=== PATIENT | female | born 1985 | race Caucasian/White ===

== ENCOUNTER → 2016-09-07 | Outpatient (CLI) | payer BC, OTHER ==
[~2016-09-07] MED LIST: INSU1INJ23; LABE100T23 PO; PRENTAB26 PO
== END | disposition home or self-care (01) ==
LOC: C.LABSPEC 11:53
PROVIDERS: ATTEND Obstetrics & Gynecology
DX: O24.414 Gestational diabetes mellitus in pregnancy, insulin controlled (principal)

== ENCOUNTER 2016-09-14 12:27 | Outpatient (CLI) | payer BC, OTHER | END 2016-09-14 13:50 | disposition home health service (06) | LOC: C.OPB 12:27 → C.LD 12:28 → C.OPB 13:50 | PROVIDERS: ATTEND Obstetrics & Gynecology | DX: O24.414 Gestational diabetes mellitus in pregnancy, insulin controlled (principal); Z3A.37 37 weeks gestation of pregnancy ==

== ENCOUNTER 2016-09-15 12:26 | Inpatient (IN) | payer BC, OTHER ==
[~2016-09-15] VITALS: Ht 154.9 cm; Wt 125.0 kg
[2016-09-15] MEDS ORDERED: LACTATED RINGER'S 1000ML 1,000 ML IV PRN (12:45)
[2016-09-15] MEDS ORDERED: SODIUM CHLORIDE 0.9% 1000ML 1,000 ML IV SCH (12:51)
[2016-09-15] MEDS ORDERED: DEXTROSE 50% 50 ML SYR IV PRN (13:00)
[2016-09-15 13:22] LABS: HEMATOCRIT 34.7 % (37-47); MEAN CELL VOLUME 85.7 fL (80-100); MEAN CORPUSCULAR HEMOGLOBIN 29.6 pg (25-34); MEAN CORPUSCULAR HGB CONC 34.6 g/dl (32-36); MEAN PLATELET VOLUME 10.5 fL (7.4-10.4); PLATELET COUNT 267 K/uL (130-400); RED BLOOD COUNT 4.05 M/uL (4.2-5.4); WHITE BLOOD COUNT 17.74 K/uL (4.8-10.8)
[2016-09-15] MEDS ORDERED: PENICILLIN G POTASSIUM IV 6 MU in DEXTROSE 5% 250ML 250 ML IV ONE (13:45)
[2016-09-15] MEDS ORDERED: SODIUM CHLORIDE 0.9% IV PRN (14:00)
[2016-09-15] MEDS ORDERED: INSULIN REGULAR IV PRN (14:00)
[2016-09-15] MEDS ORDERED: INSULIN REGULAR 250 UNITS in SODIUM CHLORIDE 0.9% 250ML 250 ML IV PRN (14:00)
[2016-09-15] MEDS: LACTATED RINGER'S 1000ML 1,000 ML IV SCH ×2 (14:15→20:15)
[2016-09-15] MEDS: DEXTROSE 5% 1000ML 1,000 ML IV SCH (14:33)
[2016-09-15 15:55] VITALS: Ht 154.9 cm; Wt 125.0 kg
[2016-09-15] MEDS ORDERED: LACTATED RINGER'S 1000ML 500 ML IV PRN ×2 (16:48→20:50)
[2016-09-15] MEDS ORDERED: OXYTOCIN 30 UNITS/500ML NSS IV PRN (17:00)
[2016-09-15] MEDS: PENICILLIN G POTASSIUM IV 3 MU in DEXTROSE 5% 100ML 100 ML IV PRN ×2 (18:41→22:31)
[2016-09-15] MEDS ORDERED: EpHEDrine SULFATE INJ 50 MG/ML AMP ONE (19:57)
[2016-09-15] MEDS ORDERED: FENTANYL 2MCG/ML ROPIV 1.25MG/ML 100ML BAG EPI ONE (19:57)
[2016-09-15] MEDS ORDERED: BUPIVACAINE 0.25% 30 ML VIAL ONE (19:57)
[2016-09-15] MEDS ORDERED: FENTANYL CITRATE INJ 50 MCG/1 ML 2 ML VIAL ONE (19:59)
[2016-09-15] MEDS ORDERED: LABETALOL HCL 100 MG TAB PO ONE (20:00)
[2016-09-15] MEDS ORDERED: NALOXONE HCL INJ 1 MG in SODIUM CHLORIDE 0.9% 1000ML 1,000 ML IV PRN ×4 (20:50)
[2016-09-15] MEDS ORDERED: EpHEDrine SULFATE INJ 50 MG/ML AMP IV PRN (21:00)
[2016-09-15] MEDS ORDERED: DiphenhydrAMINE HCL 50 MG/ML VIAL IV PRN (21:00)
[2016-09-15] MEDS ORDERED: ONDANSETRON INJ 2 MG/ML 2 ML VIAL IV PRN (21:00)
[2016-09-15] MEDS ORDERED: NALBUPHINE HCL INJ 10 MG/ML AMP IV PRN (21:00)
[2016-09-15] MEDS ORDERED: NALOXONE HCL INJ 0.4 MG/1 ML VIAL/CARP IV PRN (21:00)
[2016-09-16] MEDS: DEXTROSE 5% 1000ML 1,000 ML IV SCH (00:10)
[2016-09-16] MEDS ORDERED: NURSING VERBAL MED ORDER ONE ×2 (00:15→18:30)
[2016-09-16] MEDS ORDERED: CALCIUM CARBONATE 500 MG CHEWABLE ONE (00:18)
[2016-09-16] MEDS ORDERED: CALCIUM CARBONATE 500 MG CHEWABLE PO PRN (00:30)
[2016-09-16] MEDS: PENICILLIN G POTASSIUM IV 3 MU in DEXTROSE 5% 100ML 100 ML IV PRN ×3 (02:04→10:07)
[2016-09-16] MEDS: FENTANYL 2MCG/ML ROPIV 1.25MG/ML 100ML BAG EPI PRN ×2 (05:27→07:09)
--- NOTE | 2016-09-16 10:58 | Anesthesia Procedure Note ---
Anesthesia Epidural Removal Nt Date & Time Sep 16, 2016 at 10:58 Vital Signs Pain Intensity: 0.0 Notes Mental Status: alert / awake / arousable, participated in evaluation Nausea / Vomiting: adequately controlled Pain: adequately controlled Airway Patency, RR, SpO2: stable & adequate BP & HR: stable & adequate Hydration State: stable & adequate Neuraxial Anesthesia: was administered Anesthetic Complications: no major complications apparent, pt satisfied with anesthetic care Epidural: removed without complications, with tip intact
[2016-09-16] MEDS ORDERED: LANOLIN OINT EXT PRN ×2 (11:45)
[2016-09-16] MEDS ORDERED: OXYTOCIN 30 UNITS/500ML NSS IV PRN (11:45)
[2016-09-16] MEDS ORDERED: SUPERCREAM 0.870 % 15GM JAR EXT PRN (11:45)
[2016-09-16] MEDS ORDERED: BENZOCAINE 20% AER SPR 82.5 GM CAN EXT PRN (11:45)
[2016-09-16] MEDS ORDERED: ACETAMINOPHEN/CODEINE 300/30MG TAB PO PRN ×2 (11:45)
[2016-09-16] MEDS ORDERED: ACETAMINOPHEN 325 MG TAB PO PRN (11:45)
--- NOTE | 2016-09-16 12:31 | DELIVERY SUMMARY ---
DATE OF OPERATION: 09/16/2016 DATE OF DELIVERY: 09/16/2016. The patient is a 31-year-old 1, P0 white female EDC of 10/02/2016 who presented with rupture of membranes on 09/15/2016. She received epidural analgesia and Pitocin augmentation of labor. She is a gestational diabetic on insulin however was not taking her insulin as directed. She also hachronic hypertension and takes labetalol pre- & she has continued during the female . There was moderate shoulder dystocia present which was relieved with suprapubic pressure and hyperflexion of the hips. The anterior shoulder then delivered. The posterior shoulder then followed after and the rest of the delivered without difficulty and was placed on the mother's abdomen for further attention. Cord was clamped and cut. The was pink but was not crying vigorously and was brought to the baby bed for further resuscitation. Stimulation resulted in vigorous crying and moving of all four limbs. The placenta was expressed intact with a 3-vessel cord. First degree peritoneal laceration was repaired with 3-0 chromic in the usual fashion. There was a 400 mL blood loss. Bleeding was controlled with dilute Pitocin. Mother and doing well after delivery. I attest to the content of the Intraoperative Record and any orders documented therein. Any exceptions are noted below. MTDD
[2016-09-16 14:00] VITALS: BP 138/83; PULSE 105; TEMP 36.7; O2SAT 95
[2016-09-16 15:30] VITALS: BP 247/137; PULSE 106; TEMP 36.7
[2016-09-16 19:00] VITALS: BP 135/79; PULSE 100; TEMP 36.7
[2016-09-16] MEDS ORDERED: LABETALOL HCL 100 MG TAB PO SCH (20:00)
[2016-09-16] MEDS: IBUPROFEN 600 MG TAB PO PRN (20:41)
[2016-09-16] MEDS: DOCUSATE SODIUM 100 MG CAP PO SCH (20:41)
[2016-09-16 23:30] VITALS: BP 135/81; PULSE 90; TEMP 36.5; O2SAT 98
[2016-09-17 04:35] VITALS: BP 109/67; PULSE 85; TEMP 36.5
[2016-09-17] MEDS ORDERED: LABETALOL HCL 100 MG TAB PO SCH ×2 (06:00→18:00)
[2016-09-17 06:08] VITALS: BP 118/72; PULSE 92
[2016-09-17 07:30] VITALS: BP 138/76; PULSE 100; TEMP 36.7
[2016-09-17] MEDS: PRENATAL VITAMIN TAB PO SCH (08:21)
[2016-09-17] MEDS: DOCUSATE SODIUM 100 MG CAP PO SCH ×2 (08:21→20:20)
--- NOTE | 2016-09-17 09:50 | Progress Note ---
Subjective Sep 17, 2016. Subjective conversation w/ patient, physical exam Ambulation: ambulating normally Voiding: no voiding problems Passing Gas: Yes Diet Tolerance: Regular Diet Lochia: Moderate Feeding Type: Bottle Feeding Comment: BP elevated after arrival in room but the regular cuff was used to get the blood pressure. Review of Systems Constitutional: No chills, No fatigue, No fever, No problem reported, No sweats , No weakness, No weight loss Breast: No breast lump, No breast pain, No change in shape, No nipple discharge , No problem reported, No see HPI Abdomen: No GI bleeding, No constipation, No diarrhea, No nausea, No pain, No problem reported, No vomiting Female : No abnormal vaginal bleeding, No dysuria, No hematuria, No incontinence, No problem reported, No see HPI, No urinary frequency, No vaginal discharge Objective Vital Signs Date Time Temp Pulse Resp B/P Pulse Ox O2 Delivery O2 Flow Rate FiO2 09/17/16 07:30 Room Air 09/17/16 07:30 36.7 100 20 138/76 09/17/16 06:08 92 18 118/72 Room Air 09/17/16 04:35 36.5 85 18 109/67 Room Air 09/16/16 23:30 36.5 90 20 135/81 98 Room Air 09/16/16 23:30 98 Room Air 09/16/16 19:00 36.7 100 20 135/79 Room Air 09/16/16 15:30 36.7 106 20 247/137 Room Air 09/16/16 15:30 Room Air 09/16/16 14:00 Room Air 09/16/16 14:00 36.7 105 16 138/83 95 Room Air Physical Exam General Appearance: WELL-APPEARING, NO APPARENT DISTRESS Abdomen: non tender, soft Fundus: Firm, Non-Tender, Relation to Umbilicus (1 below U difficult to feel.) Extremities: no calf tenderness Laboratory Results Last 24 Hours Test 09/16/16 10:04 09/17/16 05:17 Bedside Glucose 78 mg/dl Hemoglobin 10.2 g/dL Hematocrit 30.0 % Assessment and Plan Post- Day#: 1 Continue Routine Care: stable course continue labetalol 100mg in the am & 50mg in the pm GBS+ continue current care plan.
[2016-09-17] MEDS: IBUPROFEN 600 MG TAB PO PRN ×2 (14:28→20:21)
[2016-09-17 15:25] VITALS: BP 146/90; PULSE 95; TEMP 36.8; O2SAT 96; O2SAT 98
[2016-09-17 18:08] VITALS: BP 131/83; PULSE 89
[2016-09-17] MEDS ORDERED: BISACODYL 5 MG TABEC PO SCH (20:00)
[2016-09-17 23:20] VITALS: BP 141/74; PULSE 84; TEMP 36.6; O2SAT 97
[2016-09-18] MEDS: IBUPROFEN 600 MG TAB PO PRN ×2 (01:57→06:20)
--- NOTE | 2016-09-18 06:57 | Progress Note ---
Subjective Sep 18, 2016. Subjective conversation w/ patient, physical exam Ambulation: ambulating normally Voiding: no voiding problems Passing Gas: Yes Diet Tolerance: Regular Diet Lochia: Small Feeding Type: Bottle Feeding Pain: Minor pain associated with vaginal laceration stitches Review of Systems Constitutional: No chills, No fever Respiratory: No cough, No shortness of breath Cardiac: No chest pain Breast: No breast pain Abdomen: No nausea, No pain, No vomiting Female : No dysuria Objective Vital Signs Date Time Temp Pulse Resp B/P Pulse Ox O2 Delivery O2 Flow Rate FiO2 09/17/16 23:20 36.6 84 20 141/74 97 Room Air 09/17/16 23:20 97 Room Air 09/17/16 18:08 89 131/83 09/17/16 15:25 98 Room Air 09/17/16 15:25 36.8 95 18 146/90 96 Room Air 09/17/16 07:30 Room Air 09/17/16 07:30 36.7 100 20 138/76 Physical Exam General Appearance: WELL-APPEARING, WD/WN, NO APPARENT DISTRESS Respiratory/Chest: lungs clear, normal breath sounds Cardiovascular: regular rate, rhythm, no gallop, no murmur Abdomen: non tender, soft Fundus: Relation to Umbilicus (At umbilicus) Extremities: no calf tenderness Medications Current Inpatient Medications Medications (Trade) Dose Ordered Sig/Kathi Route Start Time Stop Time Status Last Admin Dose Admin Oxytocin (Pitocin IV) 30 units UD PRN IV 09/16/16 11:45 10/16/16 11:44 Benzocaine (Dermoplast Aero Spr) 1 appln PRN PRN EXT 09/16/16 11:45 10/16/16 11:44 09/16/16 14:00 1 APPLN Cocaine HCl (Supercream 0.870% Cr) BID PRN EXT 09/16/16 11:45 09/30/16 11:44 Lanolin (Lanolin Oint) PRN PRN EXT 09/16/16 11:45 10/16/16 11:44 Prenat Multivit/ Joint Creaser/Iron/Folic Ac ( Vitamin Tab) 1 tab DAILY PO 09/17/16 08:00 10/17/16 07:59 09/17/16 08:21 1 TAB Ibuprofen (Motrin Tab) 600 mg Q4H PRN PO 09/16/16 11:45 10/16/16 11:44 09/18/16 06:20 600 MG Acetaminophen (Tylenol Tab) 650 mg Q6H PRN PO 09/16/16 11:45 10/16/16 11:44 Acetaminophen/ Codeine Phosphate (Tylenol w/ Codeine #3 Tab) 1 tab Q4H PRN PO 09/16/16 11:45 10/16/16 11:44 09/16/16 23:52 1 TAB Acetaminophen/ Codeine Phosphate (Tylenol w/ Codeine #3 Tab) 2 tab Q4H PRN PO 09/16/16 11:45 10/16/16 11:44 Docusate Sodium (coLACE CAP) 100 mg BID PO 09/16/16 20:00 10/16/16 19:59 09/17/16 20:20 100 MG Labetalol HCl (Normodyne Tab) 100 mg QAM PO 09/18/16 08:00 10/18/16 07:59 Assessment and Plan Post- Day#: 2 Continue Routine Care: Resident Physician Supervision Note: I interviewed and examined the patient. Discussed with Dr. Barros and agree with findings and plan as documented in the note. Any exceptions or clarifications are listed here: [None] Documented By: Whit Zamarripa - Vital Signs reviewed and WNL (temp max 36.8) - Blood Type: O+, GBS+, Rubella Immune - Patient doing well clinically - No pain reported this morning, some discomfort 2/2 stitches - Tolerating PO Diet Well - BP 141/74 today, receiving Labetalol 100mg in am and 500mg in pm - Discharge today
--- NOTE | 2016-09-18 06:58 | Discharge Instructions ---
Discharge Instructions Admission Reason for Admission: Ruptured Membrances Discharge Discharge Diagnosis / Problem: Vaginal delivery Discharge Goals Goal(s): Routine recovery after delivery Medications Continue Dispensed Medications: supercream, dermaplast, tucks, lansinoh Activity Recommendations Activity Limitations: per Instructions/Follow-up section . Instructions / Follow-Up Instructions / Follow-Up ACTIVITY RECOMMENDATIONS: * Gradual return to full activity over the next 2-3 weeks. * No lifting - nothing heavier than baby over the next 2-3 weeks. * Do not engage in vigorous exercise, sexual activity or sports until cleared by your physician. * Do not drive or operate any motorized equipment until cleared by your physician. * You may shower/bathe daily. MEDICATIONS: For discomfort or pain, you may use Acetaminophen (Tylenol), Ibuprofen (Advil), or Naproxen (Aleve) following the package directions. For constipation you may use Colace following the package directions. BREAST CARE: If you are not breast feeding: * Wear a supportive bra 24 hours a day for one to two weeks. * Avoid stimulating your breasts and nipples as much as possible during the first few weeks after delivery. * When taking a shower, have the warm water hit your back, not breasts. * When your breasts feel full, apply ice packs. Usually three to four times a day helps ease the discomfort. * Take a mild pain medication (Tylenol / Motrin) when you are uncomfortable. If breast feeding: * Use breast milk to lubricate nipples. Lansinoh cream may be used for sore nipples. You do not need to remove cream prior to breast feeding. If using a different brand of cream, check the label for directions regarding removal of cream prior to nursing. * Wear a supportive bra. * If having problems with breasts or breast feeding, call a rehab consultant or your health care provider. EPISIOTOMY CARE: After delivery, if you have an episiotomy (stitches), the following steps will ease discomfort and aid healing. * For the first 24 hours after delivery, place ice packs next to your episiotomy to help reduce swelling. * After the first 24 hour-period, sitz baths, either portable or in the tub, are suggested. A shower with a shower arm sprayed over the episiotomy may be comforting. * Nida care should be done after each voiding and bowel movement. Squirt warm water from a plastic bottle over the perineum (region of the body between the anus and urinary opening) and pat dry. * Use Dermoplast to ease discomfort. Shake container. [place] directly over the episiotomy. Place a Tucks on a clean sanitary pad next to your episiotomy. SPECIAL CARE INSTRUCTIONS: When you are discharged from the hospital, it is important for you to follow the instructions listed below: * During the first week at home, you should be able to care for yourself and your baby. In addition, the usual light household activities are encouraged. * Limit your activities to the way you feel. Do not try to clean the house or move furniture. Be sensible. * If you actively engage in sports and have done so up until the time of your delivery, you may resume these activities as soon as you feel able. This may take up to one month or even longer. Use good judgment. * Continue to take your vitamins for at least six weeks after the of your baby. * Your diet need not be limited unless you were on a special diet before your delivery. Breast-feeding mothers need around 2500 calories per day and at least 64-80 ounces of fluid per day (8 to 10 glasses). * You should eat foods from the four major food groups. Crash diets or fad diets are to be avoided. Eating lean meats, fresh fruits and vegetables, low-fat dairy products, high fiber foods and a regular exercise program, will help you get back to your pre- weight without putting your health at risk. * Constipation is sometimes a problem after delivery. Take a mild laxative as needed. If breast feeding, Milk of Magnesia is acceptable to use. You may use a suppository or Fleets enema if no episiotomy. * A daily shower or tub bath is suggested. Be sure to thoroughly and gently dry the perineum. * A bloody vaginal discharge will usually continue until around four weeks post . A small amount of bleeding may continue for as long as six weeks. Vaginal discharge changes from the bright red bleeding after delivery to pink then brownish and finally yellowish-pink before becoming white and disappearing. * Bleeding may increase with activity. Your first period may come in 4-8 weeks. If you are breast feeding, your period may be delayed even longer. * Kirk (sex) can begin whenever both you and your partner feel comfortable and do not have any form of genital infection. It is recommended that you wait at least six weeks for internal and external healing to occur. If you have questions, please talk to your health care practitioner. A condom should be used to prevent infection and . * Foreplay, gentle intercourse and lubrication is very important the first several times to prevent pain. A water-based lubricant such as K-Y jelly or Astroglide may be used. * If you have RH negative blood and your baby is RH positive, you will receive RHOGAM by injection prior to discharge. The nurse will give you a card to keep with you that has the date and place that you received RHOGAM after delivery. * During your care, you had a Rubella screen done to check for the presence of rubella antibodies in your blood. If your test was negative, you will receive a Rubella vaccine prior to discharge. This vaccine may cause a fever, soreness at the injection site and flu-like symptoms. If these symptoms persist, notify your health care practitioner. is not advised for one month after a Rubella vaccine. * Verbalizes understanding of car seat law as reviewed with patient nursing. * Car Seat hand-out given and reviewed with patient by nursing. * Shaken baby information reviewed with patient by nursing. Call you doctor if: * Heavy bleeding (saturating several pads an hour) or passing clots the size of your fist. * A fever >101 degrees F (38.3 degrees C) on two occasions four hours apart and /or chills. * Unusual pain in the pelvic or vaginal areas. * "Baby Blues" lasting longer than two weeks. If you have any questions or concerns, call your health care practitioner at . FOLLOW UP VISIT: * Please call the office at to schedule a 6 week examination. It is important you keep this appointment. It is important for you to make arrangements for either yearly or twice yearly check-ups thereafter. Current Hospital Diet Patient's current hospital diet: Regular OB Diet Discharge Diet Recommended Diet: Regular Diet Pending Studies Studies pending at discharge: no Medical Emergencies . Who to Call and When: Medical Emergencies: If at any time you feel your situation is an emergency, please call 911 immediately. . Non-Emergent Contact Non-Emergency issues call your: Senior Procurement Specialist . . "Provider Documentation" section prepared by Alex Barros. VTE Core Measure Inpt VTE Proph given/why not?: Treatment not indicated
[2016-09-18] MEDS ORDERED: LABETALOL HCL 100 MG TAB PO SCH (08:00)
[2016-09-18] MEDS: PRENATAL VITAMIN TAB PO SCH (08:53)
[2016-09-18] MEDS: DOCUSATE SODIUM 100 MG CAP PO SCH (08:55)
[2016-09-18 09:30] VITALS: BP 139/80; PULSE 88; TEMP 36.4
[2016-09-18 11:00] VITALS: BP_DIAS 80; PULSE 88; TEMP 36.4
== END 2016-09-18 11:00 | disposition home or self-care (01) | DRG 774 ==
LOC: C.OPB 12:26 → C.LD 12:26 → C.OPB 12:45 → C.LD 12:50 → C.OBG 09-16 13:52
PROVIDERS: ADMIT Obstetrics & Gynecology; ATTEND Obstetrics & Gynecology
PROC: 0HQ9XZZ Repair Perineum Skin, External Approach (ICD-10-PCS; principal; 2016-09-16)
PROC: 10E0XZZ Delivery of Products of Conception, External Approach (ICD-10-PCS; principal; 2016-09-16)
DX: O66.0 Obstructed labor due to shoulder dystocia (principal); O70.0 First degree perineal laceration during delivery; O24.414 Gestational diabetes mellitus in pregnancy, insulin controlled; O10.013 Pre-existing essential hypertension complicating pregnancy, third trimester; O99.824 Streptococcus B carrier state complicating childbirth; J45.909 Unspecified asthma, uncomplicated; O99.513 Diseases of the respiratory system complicating pregnancy, third trimester; Z3A.37 37 weeks gestation of pregnancy; Z37.0 Single live birth

== ENCOUNTER → 2016-12-28 | Outpatient (CLI) | payer BC ==
[~2016-12-28] MED LIST changes: -INSU1INJ23
--- NOTE | 2016-12-28 15:07 | MAMMOGRAPHY REPORT ---
ULTRASOUND OF LEFT BREAST: 12/28/2016 CLINICAL HISTORY: The patient reports a palpable lump in her left breast for approximately 1.5 weeks . She gave 3 months ago and is not breast feeding. She denies any nipple discharge. COMPARISON: No prior exams were available for comparison. TECHNIQUE: Real-time targeted ultrasound of the left breast was performed. FINDINGS: Real-time, high resolution targeted ultrasound was performed of the area of the palpable lump pointe d out by the patient, in the left breast at 12:00, approximately 3 cm from the nipple with her arms down. Sonographically normal tissue is seen in this region, without evidence of a mass or other thania picious sonographic abnormality. IMPRESSION: ACR BI-RADS CATEGORY 1: NEGATIVE No suspicious sonographic abnormalities at the site of the palpable left breast lump pointed out by the patient. There is no sonographic evidence of malignancy. Recommend clinical follow-up. Mary Castro M.D. ah/:12/28/2016 11:43:22 Liner Reroll Tender: Jazz AVALOS(R)(Bren), [facility] letter sent: Normal 1/2 BI-RADS Code: ACR BI-RADS Category 1: Negative
== END | disposition home or self-care (01) ==
LOC: C.MAMM 11:21
PROVIDERS: ATTEND Physician Assistant Medical
DX: N63 Unspecified lump in breast (principal)

== ENCOUNTER → 2017-06-28 | Outpatient (CLI) | payer BC ==
[2017-06-28 18:02] LABS: PREG INTERNAL NEGATIVE QC NEG CLEAR BACKGROUND; PREG INTERNAL POSITIVE QC POS CONTROL LINE
[2017-06-28 18:15] LABS: ALT/SGPT 33 U/L (12-78); AST/SGOT 27 U/L (15-37); BLOOD UREA NITROGEN 16 mg/dl (7-18); BUN/CREATININE RATIO 19.9 (10-20); CALCIUM 9.4 mg/dl (8.5-10.1); CARBON DIOXIDE 28 mmol/L (21-32); CHLORIDE 103 mmol/L (98-107); GLUCOSE 95 mg/dl (70-99); POTASSIUM 3.7 mmol/L (3.5-5.1); SODIUM 139 mmol/L (136-145)
[2017-06-28 18:17] LABS: ALB/GLOB RATIO 0.8 (0.9-2); ALKALINE PHOSPHATASE 90 U/L (45-117)
== END | disposition home or self-care (01) ==
LOC: C.LABBFT 14:57
PROVIDERS: ATTEND Physician Assistant Medical
DX: I10 Essential (primary) hypertension (principal)

== ENCOUNTER → 2017-07-02 | Outpatient (CLI) | payer BC ==
[2017-07-05 18:35] LABS: ALBUMIN 3.7 G/DL (3.8-4.8); METANEPHRINE 79 mcg/24 h (36-190); NORMETANEPHRINE UR 269 mcg/24 h (35-482); TOTAL METANEPHRINE 348 mcg/24 h (115-695); TOTAL PROTEIN 7.1 G/DL (6.2-8.3)
== END | disposition home or self-care (01) ==
LOC: C.LABBFT 08:49
PROVIDERS: ATTEND Physician Assistant Medical
DX: I10 Essential (primary) hypertension (principal); R77.1 Abnormality of globulin

== ENCOUNTER → 2017-07-09 | Outpatient (CLI) | payer BC ==
[2017-07-11 14:39] LABS: ALBUMIN % 30.95 %; ALPHA-2-GLOBULIN % 22.28 %; BETA GLOBULIN % 22.77 %; CREATININE UR 147 MG/DL (20-320); GAMMA GLOBULIN % 19.64 %
== END | disposition home or self-care (01) ==
LOC: C.LABBFT 09:23
PROVIDERS: ATTEND Physician Assistant Medical
DX: R77.1 Abnormality of globulin (principal)

== ENCOUNTER 2017-08-28 14:27 | Emergency (ER) | payer BC ==
[~2017-08-28] VITALS: Ht 157.5 cm; Wt 118.9 kg
[2017-08-28 14:31] VITALS: TEMP 36.7; O2SAT 96; Ht 157.5 cm; Wt 118.9 kg
--- NOTE | 2017-08-28 15:36 | EMERGENCY ROOM VISIT NOTE ---
History Report prepared by Peter: Joes Maria Schaffer Under the Supervision of: Dr. Chato Wilkins M.D. First contact with patient: 15:28 Chief Complaint: FLU LIKE SX Stated Complaint: STOMACH FLU,DEHYDRATED,DIZZY History of Present Illness The patient is a 32 year old white female with a past medical history of hypertension who presents to the ED with a cc of worsening flu-like symptoms beginning a week ago. Positive diarrhea, leg cramping, weakness, dizziness, decreased urinary frequency. Negative cough, vomiting, recent antibiotic use, travels, or well-water use. She states that her diarrhea worsened 4 days ago, and has been "nonstop" since then. The patient notes that she has lost 9 pounds over the past 4 days. She says that she has no known recent sick contacts. Her last menstrual period was 2 weeks ago. She notes that her immunizations are up to date, but has not had her flu shot this season. Source of History: patient Onset: A week ago Position: other (global - flu-like symptoms) Timing: worsening Associated Symptoms: + diarrhea, + urinary symptoms (decreased frequency), + weakness, No cough, No vomiting Note: Associated symptoms: Leg cramping. Dizzy. Review of Systems See HPI for pertinent positives and negatives. A total of ten systems were reviewed and were otherwise negative. Past Medical & Surgical Medical Problems: (1) 35 weeks gestation of (2) Active labor (3) HTN (hypertension) (4) Leukocytosis Family History FH: bladder cancer FH: breast cancer FH: leukemia Social History Smoking Status: Never Smoker Drug Use: none Marital Status: in relationship Occupation Status: employed Current/Historical Medications Scheduled Control Pills ( Control Pills), 1 TAB PO DAILY Cephalexin (Keflex), 1 CAP PO BID Hydrochlorothiazide (Hydrochlorothiazide), 37.5 MG PO DAILY Ondasetron Odt (Zofran Odt), 4 MG SL Q6H Allergies Coded Allergies: Sulfa Drugs (Verified Allergy, Unknown, HIVES, 08/30/16) Physical Exam Vital Signs Date Time Temp Pulse Resp B/P (MAP) Pulse Ox O2 Delivery O2 Flow Rate FiO2 08/28/17 18:17 82 18 149/93 08/28/17 14:31 36.7 96 16 136/94 96 Room Air Physical Exam GENERAL: Awake, alert, well-appearing, NAD HENT: Normocephalic, atraumatic. EYES: Normal conjunctiva. Sclera non-icteric. NECK: Supple. No nuchal rigidity. FROM. RESPIRATORY: CTAB, no rhonchi, wheezing, crackles CARDIAC: RRR, no MRG ABDOMEN: Soft, NTND, BS+, negative obturator, negative psoas. MSK: No chest wall TTP, no LE edema. No CVA TTP. NEURO: GCS 15, CN 2-12 intact, moves all 4s on command SKIN: No rash or jaundice noted. Medical Decision & Procedures ER Provider Diagnostic Interpretation: X-ray: Per my interpretation, radiologist review. CHEST ONE VIEW PORTABLE CLINICAL HISTORY: 32 years-old Female presenting with ABDOMINAL PAIN/GI. TECHNIQUE: Portable upright AP view of the chest was obtained. COMPARISON: 12/09/2008 and 04/22/2012. FINDINGS: Cardiomediastinal silhouette normal. Lungs and pleural spaces clear. Osseous structures normal. Upper abdomen normal. IMPRESSION: 1. No acute cardiopulmonary disease. Electronically signed by: Joe Landers M.D. 08/28/2017 4:03 PM Dictated Date/Time: 08/28/2017 4:02 PM Laboratory Results 08/28/17 16:15 Red Blood Count 5.12, Mean Corpuscular Volume 81.8, Mean Corpuscular Hemoglobin 29.3, Mean Corpuscular Hemoglobin Concent 35.8, Mean Platelet Volume 10.3, Neutrophils (%) (Auto) 72.2, Lymphocytes (%) (Auto) 17.3, Monocytes (%) (Auto) 8.7, Eosinophils (%) (Auto) 1.4, Basophils (%) (Auto) 0.2, Neutrophils # (Auto) 9.66, Lymphocytes # (Auto) 2.31, Monocytes # (Auto) 1.17, Eosinophils # (Auto) 0.19, Basophils # (Auto) 0.03 08/28/17 16:15 Test 08/28/17 16:15 08/28/17 17:15 White Blood Count 13.39 K/uL (4.8-10.8) Red Blood Count 5.12 M/uL (4.2-5.4) Hemoglobin 15.0 g/dL (12.0-16.0) Hematocrit 41.9 % (37-47) Mean Corpuscular Volume 81.8 fL (80-100) Mean Corpuscular Hemoglobin 29.3 pg (25-34) Mean Corpuscular Hemoglobin Concent 35.8 g/dl (32-36) Platelet Count 297 K/uL (130-400) Mean Platelet Volume 10.3 fL (7.4-10.4) Neutrophils (%) (Auto) 72.2 % Lymphocytes (%) (Auto) 17.3 % Monocytes (%) (Auto) 8.7 % Eosinophils (%) (Auto) 1.4 % Basophils (%) (Auto) 0.2 % Neutrophils # (Auto) 9.66 K/uL (1.4-6.5) Lymphocytes # (Auto) 2.31 K/uL (1.2-3.4) Monocytes # (Auto) 1.17 K/uL (0.11-0.59) Eosinophils # (Auto) 0.19 K/uL (0-0.5) Basophils # (Auto) 0.03 K/uL (0-0.2) RDW Standard Deviation 38.6 fL (36.4-46.3) RDW Coefficient of Variation 12.8 % (11.5-14.5) Immature Granulocyte % (Auto) 0.2 % Immature Granulocyte # (Auto) 0.03 K/uL (0.00-0.02) Urine Color YELLOW Urine Appearance CLOUDY (CLEAR) Urine pH 7.0 (4.5-7.5) Urine Specific [place] 1.016 (1.000-1.030) Urine Protein TRACE (NEG) Urine Glucose (UA) NEG (NEG) Urine Ketones NEG (NEG) Urine Occult Blood NEG (NEG) Urine Nitrite NEG (NEG) Urine Bilirubin NEG (NEG) Urine Urobilinogen NEG (NEG) Urine Leukocyte Esterase MODERATE (NEG) Urine WBC (Auto) 10-30 /hpf (0-5) Urine RBC (Auto) >30 /hpf (0-4) Urine Hyaline Casts (Auto) 10-30 /lpf (0-5) Urine Epithelial Cells (Auto) >30 /lpf (0-5) Urine Bacteria (Auto) NEG (NEG) Urine Test NEG (NEG) Anion Gap 6.0 mmol/L (3-11) Est Creatinine Clear Calc Drug Dose 155.1 ml/min Estimated GFR () 138.1 Estimated GFR (Non- 119.1 BUN/Creatinine Ratio 8.5 (10-20) Calcium Level 8.5 mg/dl (8.5-10.1) Phosphorus Level 2.0 mg/dl (2.5-4.9) Magnesium Level 2.2 mg/dl (1.8-2.4) Total Bilirubin 0.4 mg/dl (0.2-1) Direct Bilirubin mg/dl (0-0.2) Aspartate Amino Transf (AST/SGOT) 47 U/L (15-37) Alanine Aminotransferase (ALT/SGPT) 47 U/L (12-78) Alkaline Phosphatase 85 U/L (45-117) Total Protein 7.6 gm/dl (6.4-8.2) Albumin 3.1 gm/dl (3.4-5.0) Lipase 67 U/L (73-393) Chemistry Specimen Hemolysis Influenza Type A Antigen Neg for Influ A (NEG) Influenza Type B Antigen Neg for Influ B (NEG) Laboratory results reviewed by me Medications Administered Medications (Trade) Dose Ordered Sig/Kathi Route Start Time Stop Time Status Last Admin Dose Admin Ondansetron HCl (Zofran Inj) 4 mg NOW STAT IV 08/28/17 15:38 08/28/17 15:39 DC 08/28/17 16:13 4 MG Cephalexin Monohydrate (Keflex Cap) 500 mg NOW ONCE PO 08/28/17 17:45 08/28/17 17:46 DC 08/28/17 18:15 500 MG Potassium Chloride (Klor-Con M10) 40 meq STK-MED ONCE .ROUTE 08/28/17 18:36 08/28/17 18:37 DC 08/28/17 18:39 40 MEQ ED Course 1530: The patient was evaluated in room A2. A complete history and physical exam was performed. 1830: I reevaluated the patient and she is resting comfortably. Discussed results and discharge instructions: she verbalized understanding and agreement. The patient is ready for discharge. Medical Decision The patient is a 32 year old white female with a past medical history of hypertension who presents to the ED with a cc of worsening flu-like symptoms beginning a week ago. Positive diarrhea, leg cramping, weakness, dizziness, decreased urinary frequency. Negative cough, vomiting, recent antibiotic use, travels, or well-water use. Differential diagnosis: Etiologies such as appendicitis, diverticulitis, PUD, biliary pathology, UTI, pancreatitis, obstruction, mesenteric ischemia, aortic pathology, infections, inflammatory bowel disease, renal colic, as well as others were entertained. Patient was seen and evaluated the bedside. Patient was complaining of some GI upset, nausea, with some loose stools. Patient did feel weak and dizzy. On exam the patient was fairly well-appearing and had normal cap refill. Patient did have blood work that was completed along with urinalysis and urine test. Patient had a questionable UTI which was treated given her symptoms. Patient did have hypokalemia and normal mag the patient was repleted with potassium. Patient was told she would take a multivitamin and/or eat potatoes and/or bananas. Influenza negative. Patient was able tolerate by mouth and her nausea had resolved medications. Patient was given prescriptions as well as recommendations for at-home treatment. Patient was deemed suitable for outpatient follow-up and treatment. Patient does not have a surgical abdomen that I thought required any more advanced imaging at this time. Patient was amenable to the plan of care. Patient was given strict follow-up, discharge, and return precautions. All questions were answered. Patient was deemed suitable for outpatient follow-up at this time. Patient agreed with the plan of care and was safely discharged home. Medication Reconcilliation Current Medication List: was personally reviewed by me Blood Pressure Screening Patient's blood pressure: Elevated blood pressure Blood pressure disposition: Referred to PCP Impression Primary Impression: Influenza-like symptoms Additional Impressions: Hypokalemia UTI (urinary tract infection) Scribe Attestation The scribe's documentation has been prepared under my direction and personally reviewed by me in its entirety. I confirm that the note above accurately reflects all work, treatment, procedures, and medical decision making performed by me. Departure Information Dispostion Home / Self-Care Prescriptions Ondasetron Odt (ZOFRAN ODT) 4 Mg Tab 4 MG SL Q6H for Nausea, #12 TAB Prov: Chato Wilkins M.D. 08/28/17 Cephalexin (KEFLEX) 500 Mg Cap 1 CAP PO BID for 7 Days, #14 CAP Prov: Chato Wilkins M.D. 08/28/17 Referrals Darius Ellis M.D. (PCP) Patient Instructions ED Food Poison Or Gastroenteritis, ED Nausea Vomiting, ED UTI Cystitis Female, Hypokalemia Dc, My [facility] Additional Instructions Please return to the emergency department if you have worsening or recurrent symptoms not amenable to at-home treatment. Please call for a follow-up appointment with her primary care physician. Please take your medications as prescribed. If you have other concerns and/or complaints please feel free to also call your primary care physician's office or return the ED for further evaluation, management, and treatment. You may take 600 mg Ibuprofen every 6 hours as needed for pain with food for no more than 2 consecutive days. You may take tylenol 1000 mg every 6 hours as needed for pain. You may take motrin and tylenol separately or at the same time. Take your medications as prescribed. If taking an antibiotic consider taking a probiotic and/or eating yogurt, but at the least, please take with food as it can cause upset stomach. Please consider a bland diet. Avoid things like citrus or spicy foods. Reintroduce foods into your diet as tolerated. Consider taking something like a Pepcid or famotidine to help with any GI upset. You have been examined and treated today on an emergency basis only. This is not a substitute for, or an effort to provide, complete comprehensive medical care. It is impossible to recognize and treat all injuries or illnesses in a single emergency department visit. It is therefore important that you follow up closely with [facility], your PCP, and/or your specialist(s). Call as soon as possible for an appointment. Thank you for your time and consideration. I look forward to speaking with you again soon. Please don't hesitate to call us if you have any questions. Problem Qualifiers Additional Impressions: UTI (urinary tract infection) Urinary tract infection type: acute cystitis Hematuria presence: with hematuria Qualified Codes: N30.01 - Acute cystitis with hematuria
[2017-08-28] MEDS ORDERED: ONDANSETRON INJ 2 MG/ML 2 ML VIAL IV STA (15:38)
[2017-08-28] MEDS ORDERED: BCPILLS PO (15:58)
[2017-08-28] MEDS ORDERED: HYDR25TA5 PO (15:58)
--- NOTE | 2017-08-28 16:04 | DIAGNOSTIC IMAGING REPORT ---
CHEST ONE VIEW PORTABLE CLINICAL HISTORY: 32 years-old Female presenting with ABDOMINAL PAIN/GI. TECHNIQUE: Portable upright AP view of the chest was obtained. COMPARISON: 12/09/2008 and 04/22/2012. FINDINGS: Cardiomediastinal silhouette normal. Lungs and pleural spaces clear. Osseous structures normal. Upper abdomen normal. IMPRESSION: 1. No acute cardiopulmonary disease. Electronically signed by: Joe Landers M.D. 08/28/2017 4:03 PM Dictated Date/Time: 08/28/2017 4:02 PM
[2017-08-28 16:30] LABS: BASO % 0.2 %; BASO ABS # 0.03 K/uL (0-0.2); COMPLETE YES; EOS % 1.4 %; HEMATOCRIT 41.9 % (37-47); IG% 0.2 %; LYMPH % 17.3 %; LYMPH ABS # 2.31 K/uL (1.2-3.4); MEAN CELL VOLUME 81.8 fL (80-100); MEAN CORPUSCULAR HEMOGLOBIN 29.3 pg (25-34); MEAN CORPUSCULAR HGB CONC 35.8 g/dl (32-36); MEAN PLATELET VOLUME 10.3 fL (7.4-10.4); MONO % 8.7 %; NEUT % 72.2 %; PLATELET COUNT 297 K/uL (130-400); RED BLOOD COUNT 5.12 M/uL (4.2-5.4); WHITE BLOOD COUNT 13.39 K/uL (4.8-10.8)
[2017-08-28 16:34] LABS: URINE APPEARANCE CLOUDY (CLEAR); URINE BILIRUBIN NEG (NEG); URINE COLOR YELLOW; URINE EPITHELIAL CELL AUTO >30 /lpf (0-5); URINE NITRITE NEG (NEG); URINE SPECIFIC GRAVITY 1.016 (1.000-1.030); UROBILINOGEN NEG (NEG); ZZUR CULT IF INDIC CLEAN CATCH YES
[2017-08-28 16:35] LABS: MANUAL MICROSCOPIC REQUIRED? NO; REVIEW REQ? NO
[2017-08-28 17:10] LABS: BUN/CREATININE RATIO 8.5 (10-20); CALCIUM 8.5 mg/dl (8.5-10.1); CREATININE 0.65 mg/dl (0.60-1.20); MAGNESIUM 2.2 mg/dl (1.8-2.4); POTASSIUM 2.8 mmol/L (3.5-5.1)
[2017-08-28] MEDS ORDERED: CEPHALEXIN MONOHYDRATE 250 MG CAP PO ONE (17:45)
[2017-08-28] MEDS ORDERED: CEPH-571 PO (18:14)
[2017-08-28] MEDS ORDERED: ONDA4TAB10 SL (18:14)
[2017-08-28] MEDS ORDERED: POTASSIUM CHLORIDE 20 MEQ TABCR PO STA ×2 (18:15→18:33)
[2017-08-28 18:17] VITALS: BP 149/93; PULSE 82
[2017-08-28] MEDS ORDERED: POTASSIUM CHLORIDE 10 MEQ TABCR ONE (18:36)
== END 2017-08-28 18:43 | disposition home or self-care (01) ==
LOC: C.EDB 14:30 → C.EDA 18:43
DX: R09.89 Other specified symptoms and signs involving the circulatory and respiratory systems (principal); R19.7 Diarrhea, unspecified; E87.6 Hypokalemia; N30.01 Acute cystitis with hematuria; R35.0 Frequency of micturition; R53.1 Weakness; I10 Essential (primary) hypertension; Z79.3 Long term (current) use of hormonal contraceptives; Z79.899 Other long term (current) drug therapy; Z80.3 Family history of malignant neoplasm of breast; Z80.52 Family history of malignant neoplasm of bladder; Z80.6 Family history of leukemia

== ENCOUNTER → 2017-09-17 | Outpatient (CLI) | payer BC ==
[~2017-09-17] MED LIST changes: +BCPILLS PO; +HYDR25TA5 PO; -LABE100T23 PO; +ONDA4TAB10 SL; -PRENTAB26 PO
== END | disposition home or self-care (01) ==
LOC: C.LAB1850 09:23
PROVIDERS: ATTEND Internal Medicine Nephrology
DX: I10 Essential (primary) hypertension (principal)

== ENCOUNTER → 2017-11-07 | Outpatient (CLI) | payer BC | END | disposition home or self-care (01) | LOC: C.PAPS 13:19 | PROVIDERS: ATTEND Physician Assistant | DX: Z01.419 Encounter for gynecological examination (general) (routine) without abnormal findings (principal) ==

== ENCOUNTER → 2017-11-30 | Outpatient (CLI) | payer BC | END | disposition home or self-care (01) | LOC: C.LABSPEC 15:11 | PROVIDERS: ATTEND Physician Assistant | DX: Z30.430 Encounter for insertion of intrauterine contraceptive device (principal) ==

== ENCOUNTER → 2018-01-02 | Outpatient (CLI) | payer BC ==
[2018-01-02 12:24] LABS: BLOOD UREA NITROGEN 16 mg/dl (7-18); CALCIUM 8.6 mg/dl (8.5-10.1); CARBON DIOXIDE 29 mmol/L (21-32); CREATININE 0.75 mg/dl (0.60-1.20); GLUCOSE 95 mg/dl (70-99); POTASSIUM 3.5 mmol/L (3.5-5.1); SODIUM 137 mmol/L (136-145)
== END | disposition home or self-care (01) ==
LOC: C.LABBFT 09:03
PROVIDERS: ATTEND Physician Assistant Medical
DX: N75.0 Cyst of Bartholin's gland (principal); I10 Essential (primary) hypertension; J45.909 Unspecified asthma, uncomplicated

== ENCOUNTER 2021-03-21 15:30 | Inpatient (IN) ==
[2021-03-21 18:24] LABS: Appearance Urine Clear (Clear); Blood Urine Negative (Negative); Color Urine Dark Yellow; Glucose Urine UA Negative (Negative); Ketones Urine Trace (Negative); Leukocyte Esterase Urine Negative (Negative); Nitrite Urine Negative (Negative); Protein Urine Negative (Negative); Specific Gravity Urine 1.027 (1.000-1.030); Urobilinogen Urine Positive (Negative)
[2021-03-21 18:37] LABS: Albumin Level 3.8 gm/dl (3.4-5.0); BUN Creatinine Ratio 17.8 (10-20); Bilirubin Urine 1+ (Negative); Calcium 9.2 mg/dl (8.5-10.1); Creatinine Clr Calc Pharmacy 116.9 ml/min; Est GFR (African American) 112.3 ml/min; Est GFR (Non-African American) 96.9 ml/min; Potassium 3.6 mmol/L (3.5-5.1)
[2021-03-21 18:39] LABS: Basophils # (auto) 0.03 K/uL (0-0.2); Basophils % (auto) 0.1 %; Eosinophils # (auto) 0.08 K/uL (0-0.5); Eosinophils % (auto) 0.3 %; Hematocrit (blood only) 42.8 % (37-47); Hemoglobin 14.7 g/dL (12.0-16.0); Immature Granulocytes # (auto) 0.08 K/uL (0.00-0.02); Immature Granulocytes % (auto) 0.3 %; Lymphocytes # (auto) 2.23 K/uL (1.2-3.4); Lymphocytes % (auto) 9.4 %; Mean Corpuscular Hemoglobin 29.6 pg (25-34); Mean Corpuscular Hgb Conc 34.3 g/dL (32-36); Mean Corpuscular Volume 86.3 fL (80-100); Mean Platelet Volume 10.3 fL (7.4-10.4); Monocytes # (auto) 0.98 K/uL (0.11-0.59); Monocytes % (auto) 4.1 %; Neutrophils # (auto) 20.27 K/uL (1.4-6.5); Neutrophils % (auto) 85.8 %; Platelet Count 362 K/uL (130-400); RDW Coefficient of Variation 13.2 % (11.5-14.5); RDW Standard Deviation 41.4 fL (36.4-46.3); Red Blood Count 4.96 M/uL (4.2-5.4); White Blood Count 23.67 K/uL (4.8-10.8)
[2021-03-21 18:40] LABS: Albumin Globulin Ratio 0.8 (0.9-2); Bilirubin,Total 1.6 mg/dl (0.2-1); Globulin 4.8 gm/dl (2.5-4.0); Total Protein 8.6 gm/dl (6.4-8.2)
[2021-03-21 19:00] LABS: Pregnancy Test, Serum Negative (Negative)
[2021-03-21] MEDS ORDERED: SODIUM CHLORIDE 0.9% 1000ML 1,000 ML IV SCH (19:15)
[2021-03-21] MEDS ORDERED: MoRPHine SULFATE 4 MG/ML 1 ML CARP\\VIAL IV STA (19:15)
[2021-03-21] MEDS ORDERED: ONDANSETRON INJ 2 MG/ML 2 ML VIAL IV STA (19:15)
--- NOTE | 2021-03-21 19:26 | Emergency Department Note ---
History of Present Illness General Chief complaint: Abdominal Pain Stated complaint: RIGHT SIDE PAIN, RADIATING TO BACK Time Seen by Provider: 03/21/21 18:54 History of Present Illness Maximum Pain Intensity: 7 Patient is a 35-year-old female with past medical history significant for anxi ety, hypertension and diabetes who presents the emergency department for evaluation of right-sided abdominal pain. Her symptoms started fairly abruptly around 11:00 today, roughly 8 hours ago now. It was a constant, achy pain that steadily increased and became more sharp and stabbing. She states that it was at its worst between 2 and 3:00 this afternoon, then began to decrease on its own. The worst pain she would have rated a 9/10. She currently rates her pain a 5/10. She states that it began to wrap around to her right back. She felt nauseous but did not vomit. She never had symptoms similar to this previously. She tried taking some Pepto-Bismol. She has a chronic diarrhea, did not have a bowel movement today. She denies any urinary symptoms. No indigestion or reflux. No chest pain or shortness of breath. She had taken the noodles and vegetables for lunch yesterday and then an egg sandwich for dinner. Home Medications Medication Instructions Recorded Confirmed Type hydrochlorothiazide 25 mg tablet 25 mg PO DAILY #90 tab 11/15/20 03/21/21 Rx metformin 1,000 mg tablet 1,000 mg PO BIDM 03/21/21 03/21/21 History norethindrone (contraceptive) 0.35 0.35 mg PO HS 03/21/21 03/21/21 History mg tablet (Carly) sertraline 50 mg tablet 50 mg PO HS 03/21/21 03/21/21 History Allergies Allergy/AdvReac Type Severity Reaction Status Date / Time Sulfa (Sulfonamide Allergy Intermediate HIVES Verified 03/21/21 19:34 Antibiotics) Past Med/Surg History Medical History Anxiety Asthmatic bronchitis Bartholin cyst Breast swelling Chronic constipation Esophageal reflux Hidradenitis suppurativa History of cardiac murmur HTN (hypertension) Hyperglobulinemia Morbid obesity Rectocele Type 2 diabetes mellitus Surgical History S/P surgical removal of pilonidal cyst Family History Grandfather (Maternal) Breast cancer Colorectal cancer Mother Arthritis Hypertension Family/Other Cancer Diabetes Hypertension Grandmother (Maternal) Breast cancer Denies family history of Ovarian cancer Social History Smoking Status: Never smoker Second Hand Exposure: No; Hx Alcohol Use: No Hx Substance Use: No Preferred Language: Wolof Communication Ability: Effective Visual Impairment: No Limitations Hearing Ability: Normal marital status: Current Living Situation: Spouse current occupation: Stay at home mom Feels Safe at Home: Yes Sexual Activity: has been sexually active within the last 12 months Review of Systems A total of 10 systems reviewed and were otherwise negative Physical Exam Vital Signs Vital Signs - 24 hr 03/21/21 16:02 03/21/21 19:27 03/21/21 21:12 Temperature 36.4 C L Temperature Source Temporal Artery Scan Pulse Rate 103 H Pulse Rate [Finger] 94 H 102 H Respiratory Rate 20 18 18 Blood Pressure 161/97 H Blood Pressure [Left Arm] 144/97 H 164/123 H Blood Pressure Mean 118 Blood Pressure Mean [Left Arm] 112 136 Blood Pressure Position Sitting Pulse Oximetry 95 96 95 Oxygen Delivery Method Room Air Room Air Room Air Sepsis Recent Fever Within 48 Hours No Sepsis New/Unexplained Change in Mental Status No Sepsis Action Taken by Nursing No Action Required 03/21/21 21:50 Temperature Temperature Source Pulse Rate Pulse Rate [Finger] 103 H Respiratory Rate 18 Blood Pressure Blood Pressure [Left Arm] 181/99 H Blood Pressure Mean Blood Pressure Mean [Left Arm] 126 Blood Pressure Position Pulse Oximetry 96 Oxygen Delivery Method Room Air Sepsis Recent Fever Within 48 Hours Sepsis New/Unexplained Change in Mental Status Sepsis Action Taken by Nursing CONSTITUTIONAL: Patient is an overweight 35-year-old female who is awake and alert and in no acute distress. EYES: Pupils equal, round, reactive to light and accommodation. EOMs intact without nystagmus. Sclera are anicteric. ENT: Tympanic membranes intact, with normal landmarks. External canals are clear. Oral and nasopharynx are clear. Mucous membranes are moist, no lesions, tongue and gums appear normal. CARDIOVASCULAR: Regular rate and rhythm, with normal S1 and S2, no murmur or gallop or rub is heard. Peripheral pulses easily palpable. RESPIRATORY: Breath sounds equal and clear to auscultation without wheezes, rales, or rhonchi heard. Full and equal chest expansion without accessory muscle use or retractions. ABDOMEN: Bowel sounds are present. Abdomen is soft, nondistended, tender to percussion and palpation in the epigastric and right upper quadrant. There is no pain in the right lower quadrant or McBurney's point. Positive Ricks sign. No CVA tenderness. INTEGUMENTARY: No lesions or rash, normal skin turgor. LYMPH: No lymphadenopathy. Course Course The patient was seen and assessed as above. Old records were reviewed. She presents the emergency department for evaluation of right upper quadrant abdominal pain. Nursing staff had implemented critical pathways prior to my assessment of the patient. Laboratory studies have been performed including CBC with differential, CMP, lipase, urinalysis and urine test. After the patient was assessed, she was ordered IV fluids, morphine 4 mg and Zofran 4 mg IV. Laboratory studies note an elevated white count at 24,000 with left shift and bandemia noted. Electrolytes and renal functions are within normal limits. Bilirubin and transaminases are all elevated. Total bilirubin 1.6, AST 213, ALT 118, alk phos 128. Lipase is within normal limits. test is negative. Urine microscopy is not indicative of infection. Given the patient's right upper quadrant pain and elevated white count and abnormal LFTs, gallbladder ultrasound was ordered. Patient ultrasound has not been read by by radiologist at this time, but preliminary notations from the ground source heat pump technician note a 2.7 cm mobile stone, gallbladder wall measures 0.2 cm, common bile duct measures 0.2 cm, no sonographic Ricks sign. Patient history, presentation and ED work-up were reviewed with Dr. Stark. She was given Zosyn 4.5 g IV. Given the findings on ultrasound, I did discuss the patient with general surgery on-call, Dr. Ivory. He recommended the patient be treated with IV antibiotics, and believes that a HIDA scan may be helpful. [facility]. At the time of completion of dictation, the official radiology report was back, and was reviewed by myself. The gallbladder is fluid-filled with a 2.7 cm mobile calculi. No pericholecystic edema, gallbladder wall thickening or son ographic Ricks sign suggestive of acute cholecystitis. Common bile duct measures 0.2 cm. She is hepatic steatosis and hepatomegaly noted. Administered Medications Discontinued Medications Sodium Chloride (Nss 1000ml) 1,000 mls @ 999 mls/hr IV .Q1H1M TYRONE Stop: 03/21/21 20:15 Last Infusion: 03/21/21 20:49 Dose: 0 mls/hr Documented by: [id number] Admin: 03/21/21 19:22 Dose: 999 mls/hr Documented by: [id number] Piperacillin Sod/Tazobactam Sod (Zosyn) 4.5 gm in 120 mls @ 240 mls/hr IV NOW ONE Stop: 03/21/21 21:28 Last Infusion: 03/21/21 21:43 Dose: 0 mls/hr Documented by: [id number] Admin: 03/21/21 21:11 Dose: 240 mls/hr Documented by: [id number] Morphine Sulfate (Morphine Sulfate 4 Mg/Ml 1 Ml Carp\Vial) 4 mg IV NOW STA Stop: 03/21/21 19:16 Last Admin: 03/21/21 19:22 Dose: 4 mg Documented by: [id number] Ondansetron HCl (Ondansetron Inj 2 Mg/Ml 2 Ml Vial) 4 mg IV NOW STA Stop: 03/21/21 19:16 Last Admin: 03/21/21 19:22 Dose: 4 mg Documented by: [id number] Medical Decision Making Differential Diagnosis Differential diagnoses include reflux, gastritis, gastroenteritis, pancreatitis, cholelithiasis, cholecystitis, appendicitis, mesenteric ischemia, pyelonephritis, urinary tract infection, renal colic, diverticulitis, shingles, bowel obstruction, intussusception, hernia, ovarian torsion, ruptured ovarian cyst, ectopic , . Medical Records Attestation: I reviewed the patient's medical records. Home Medications Current Medication List: was personally reviewed by me Laboratory Data Attestation: I reviewed the patient's lab results. Result diagrams: 03/21/21 18:02 03/21/21 18:02 Lab Results 03/21/21 03/21/21 03/21/21 Range/Units 18:02 18:02 18:02 WBC 23.67 H (4.8-10.8) K/uL RBC 4.96 (4.2-5.4) M/uL Hgb 14.7 (12.0-16.0) g/dL Hct 42.8 (37-47) % MCV 86.3 (80-100) fL MCH 29.6 (25-34) pg MCHC 34.3 (32-36) g/dL RDW Std Deviation 41.4 (36.4-46.3) fL RDW Coeff of Hanane 13.2 (11.5-14.5) % Plt Count 362 (130-400) K/uL MPV 10.3 (7.4-10.4) fL Immature Gran % (Auto) 0.3 % Neut % (Auto) 85.8 % Lymph % (Auto) 9.4 % Bee % (Auto) 4.1 % Eos % (Auto) 0.3 % Baso % (Auto) 0.1 % Neut # (Auto) 20.27 H (1.4-6.5) K/uL Lymph # (Auto) 2.23 (1.2-3.4) K/uL Bee # (Auto) 0.98 H (0.11-0.59) K/uL Eos # (Auto) 0.08 (0-0.5) K/uL Baso # (Auto) 0.03 (0-0.2) K/uL Immature Gran # (Auto) 0.08 H (0.00-0.02) K/uL Absolute Nucleated RBC 0.00 (0-0) K/uL Nucleated RBC % (auto) 0.0 % Sodium 135 L (136-145) mmol/L Potassium 3.6 (3.5-5.1) mmol/L Chloride 101 (98-107) mmol/L Carbon Dioxide 25 (21-32) mmol/L Anion Gap 9.0 (3-11) BUN 14 (7-18) mg/dl Creatinine 0.80 (0.6-1.2) mg/dl Est Cr Clr Drug Dosing 116.9 ml/min Est GFR ( Amer) 112.3 ml/min Est GFR (Non-Af Amer) 96.9 ml/min BUN/Creatinine Ratio 17.8 (10-20) Glucose 139 H (70-99) mg/dl Calcium 9.2 (8.5-10.1) mg/dl Total Bilirubin 1.6 H (0.2-1) mg/dl AST 213 H (15-37) U/L ALT 118 H (12-78) U/L Alkaline Phosphatase 128 H (45-117) U/L Total Protein 8.6 H (6.4-8.2) gm/dl Albumin 3.8 (3.4-5.0) gm/dl Globulin 4.8 H (2.5-4.0) gm/dl Albumin/Globulin Ratio 0.8 L (0.9-2) Lipase 86 (73-393) U/L HCG, Qual Negative (Negative) Urine Color Urine Appearance (Clear) Urine pH (4.5-7.5) Ur Specific Bristow (1.000-1.030) Urine Protein (Negative) Urine Glucose (UA) (Negative) Urine Ketones (Negative) Urine Blood (Negative) Urine Nitrite (Negative) Urine Bilirubin (Negative) Urine Urobilinogen (Negative) Ur Leukocyte Esterase (Negative) COVID-19 Eval Order SARS-CoV-2 (PCR) (Negative) 03/21/21 03/21/21 03/21/21 Range/Units 18:02 21:12 21:12 WBC (4.8-10.8) K/uL RBC (4.2-5.4) M/uL Hgb (12.0-16.0) g/dL Hct (37-47) % MCV (80-100) fL MCH (25-34) pg MCHC (32-36) g/dL RDW Std Deviation (36.4-46.3) fL RDW Coeff of Hanane (11.5-14.5) % Plt Count (130-400) K/uL MPV (7.4-10.4) fL Immature Gran % (Auto) % Neut % (Auto) % Lymph % (Auto) % Bee % (Auto) % Eos % (Auto) % Baso % (Auto) % Neut # (Auto) (1.4-6.5) K/uL Lymph # (Auto) (1.2-3.4) K/uL Bee # (Auto) (0.11-0.59) K/uL Eos # (Auto) (0-0.5) K/uL Baso # (Auto) (0-0.2) K/uL Immature Gran # (Auto) (0.00-0.02) K/uL Absolute Nucleated RBC (0-0) K/uL Nucleated RBC % (auto) % Sodium (136-145) mmol/L Potassium (3.5-5.1) mmol/L Chloride (98-107) mmol/L Carbon Dioxide (21-32) mmol/L Anion Gap (3-11) BUN (7-18) mg/dl Creatinine (0.6-1.2) mg/dl Est Cr Clr Drug Dosing ml/min Est GFR ( Amer) ml/min Est GFR (Non-Af Amer) ml/min BUN/Creatinine Ratio (10-20) Glucose (70-99) mg/dl Calcium (8.5-10.1) mg/dl Total Bilirubin (0.2-1) mg/dl AST (15-37) U/L ALT (12-78) U/L Alkaline Phosphatase (45-117) U/L Total Protein (6.4-8.2) gm/dl Albumin (3.4-5.0) gm/dl Globulin (2.5-4.0) gm/dl Albumin/Globulin Ratio (0.9-2) Lipase (73-393) U/L HCG, Qual (Negative) Urine Color Dark Yellow Urine Appearance Clear (Clear) Urine pH 7.0 (4.5-7.5) Ur Specific Bristow 1.027 (1.000-1.030) Urine Protein Negative (Negative) Urine Glucose (UA) Negative (Negative) Urine Ketones Trace H (Negative) Urine Blood Negative (Negative) Urine Nitrite Negative (Negative) Urine Bilirubin 1+ H (Negative) Urine Urobilinogen Positive H (Negative) Ur Leukocyte Esterase Negative (Negative) COVID-19 Eval Order Covid19 at [facility] SARS-CoV-2 (PCR) NEGATIVE (Negative) Imaging Data Attestation: I personally reviewed and interpreted this imaging study as follows: Radiologist's Impression: Gallbladder Ultrasound 03/21/21 19:15 US gallbladder CLINICAL HISTORY: 35 years-old Female presenting with ruq pain. TECHNIQUE: Real-time grayscale ultrasound imaging of the upper abdomen was performed for a focused evaluation at the site of clinical concern. COMPARISON: None. FINDINGS: Visualized portion of the pancreas shows no evidence of focal lesions. Liver is enlarged, measuring 22 cm in size with mild diffuse increase in echogenicity and coarsening of echotexture. No focal liver lesions or intrahepatic biliary dilatation seen. Gallbladder is fluid-filled with 2.7 cm mobile calculi. No evidence of pericholecystic edema, gallbladder wall thickening or sonographic Ricks's sign to suggest cholecystitis. Common bile duct is measuring 0.2 cm in size. Limited evaluation of right kidney shows no evidence of hydronephrosis. Right kidney is measuring 12.5 cm in length. IMPRESSION: 1. Cholelithiasis without sonographic evidence of cholecystitis. 2. Hepatic steatosis. Hepatomegaly. ACT 112: Negative or not required by law. Electronically signed by: Stephanie Grove DO 03/21/2021 10:01 PM MDM Narrative See ED course Impression & Plan Cholelithiasis, Leukocytosis, Abnormal LFTs, Right upper quadrant abdominal p ain Discharge Plan Visit Data Chief Complaint: Abdominal Pain Stated Complaint: RIGHT SIDE PAIN, RADIATING TO BACK ED Provider: Jose Alberto Stark ED Midlevel Provider: Verona Renteria Discharge Problem: Cholelithiasis, Leukocytosis, Abnormal LFTs, Right upper quadrant abdominal pain Patient Disposition: Being Evaluated by Hospitalist Forms Stand Alone Forms: My [facility] [employer] Prescriptions Prescriptions: No Action hydrochlorothiazide 25 mg tablet 25 mg PO DAILY Qty: 90 RF: 1 metformin 1,000 mg tablet 1,000 mg PO BIDM RF: 0 norethindrone (contraceptive) [Carly] 0.35 mg tablet 0.35 mg PO HS RF: 0 sertraline 50 mg tablet 50 mg PO HS RF: 0 Referrals Referrals: Sylvester cMkeon MD [Primary Care Provider] -
[2021-03-21] MEDS ORDERED: PIPERACILL/TAZOBAC CONSULT ACTIVE PRN (20:59)
[2021-03-21] MEDS ORDERED: PIPERACILLIN/TAZOBACTAM 4.5 GM/120 ML BAG IV ONE (20:59)
--- NOTE | 2021-03-21 22:01 | History & Physical Report ---
Date of Service March 21, 2021 Assessment & Plan (1) Cholelithiasis: Plan: Cholelithiasis/abnormal LFTs/right upper quadrant pain- NPO NSS + KCl 20 mEq 100 mils per hour Zosyn 4.5 g IV every 8 hours Famotidine 20 mg IV every 12 hours Zofran 4 mg IV every 6 hours as needed Add acute hepatitis profile Consult gastroenterology (2) Abnormal LFTs: Plan: See above (3) Right upper quadrant abdominal pain: Plan: See above (4) Type 2 diabetes mellitus: Plan: Hold Metformin. Placed on Accu-Cheks before meals and at bedtime with NovoLog coverage per scale Check hemoglobin A1c (5) Anxiety: Plan: Temporarily hold sertraline while patient is n.p.o. (6) HTN (hypertension): Plan: Hold HCTZ (7) Leukocytosis: Plan: WBC 23.67 upon admission Follow serially as treatment continues History of Present Illness Chief Complaint: The patient presents to the ED with complaint of RUQ abdominal pain, and nausea without vomiting that began late this morning, and later radiated around her right side toward her back. Primary Care Provider: Sylvester Mckeon MD The patient is a 35-year-old female with a past medical history including abnormalities type II, anxiety, hypertension, acanthosis nigra cans, eczema, morbid obesity, and rectocele. She presents with symptoms as noted above. Work-up in the emergency department including the following abnormal laboratories: WBC 23.67 with left shift, AST 213, ALT 118, total bilirubin 1.6 and glucose 139. Gallbladder ultrasound showed cholelithiasis without sonographic evidence of cholecystitis. Hepatic steatosis and hepatomegaly. Allergies Allergy/AdvReac Type Severity Reaction Status Date / Time Sulfa (Sulfonamide Allergy Intermediate HIVES Verified 03/21/21 19:34 Antibiotics) Home Medications Medication Instructions Recorded Confirmed Type hydrochlorothiazide 25 mg tablet 25 mg PO DAILY #90 tab 11/15/20 03/21/21 Rx metformin 1,000 mg tablet 1,000 mg PO BIDM 03/21/21 03/21/21 History norethindrone (contraceptive) 0.35 0.35 mg PO HS 03/21/21 03/21/21 History mg tablet (Carly) sertraline 50 mg tablet 50 mg PO HS 03/21/21 03/21/21 History Past Med/Surg History Medical History Anxiety Asthmatic bronchitis Bartholin cyst Breast swelling Chronic constipation Esophageal reflux Hidradenitis suppurativa History of cardiac murmur HTN (hypertension) Hyperglobulinemia Morbid obesity Rectocele Type 2 diabetes mellitus Surgical History S/P surgical removal of pilonidal cyst Family History Grandfather (Maternal) Breast cancer Colorectal cancer Mother Arthritis Hypertension Family/Other Cancer Diabetes Hypertension Grandmother (Maternal) Breast cancer Denies family history of Ovarian cancer Social History Smoking Status: Former smoker Second Hand Exposure: No; Do You Dip or Chew Tobacco: No; Tobacco Cessation Education Requested by Patient: No Hx Alcohol Use: No Hx Substance Use: No Preferred Language: Irish Communication Ability: Effective Visual Impairment: No Limitations Hearing Ability: Normal Edge Trimmer Required: No Beliefs That Will Affect Care: None marital status: Current Living Situation: Spouse current occupation: Stay at home mom Other Information That Helps Us Care for You: No Feels Safe at Home: Yes Safety Concerns: Feels Safe At This Time Sexual Activity: has been sexually active within the last 12 months Assistive Devices: Glasses Review of Systems Review of Systems: The patient denies chest pain, palpitations, shortness of breath, dyspnea on exertion, cough, lower extremity swelling, sore throat, fevers, chills, sweats, vomiting, diarrhea , constipation, pelvic pain, blood in urine or stool, dysuria, urinary frequency or urgency, lightheadedness, dizziness, headache, memory loss, loss of consciousness, rash, abnormal bruising or bleeding, imbalance, focal or generalized weakness, numbness or tingling in arms or legs, generalized arthralgias or myalgias, neck pain, or night sweats. The review of systems is otherwise negative other than for that already noted above, and at least 10 systems have been reviewed. Physical Exam Physical Exam: The patient is awake, alert and oriented 3, well developed and well nourished, normocephalic and atraumatic, lying in bed and in no acute distress. HEENT--PERRL, EOMI, mucous membranes and oropharynx normal. Neck--supple. No JVD. No bruits. Thyroid normal, trachea midline, no adenopathy. Heart--normal S1 and S2. No murmurs, rubs or gallops. Lungs--clear bilaterally, no respiratory distress, no accessory muscle use. Abdomen--normal bowel sounds and soft. Mild epigastric and right upper quadrant tenderness with palpation Extremities--no cyanosis or clubbing. No edema. Dermatologic--normal skin turgor, normal color, no abnormal lymph nodes, no rash. Neurologic--cranial nerves II through XII grossly intact. Rheumatologic--normal range of motion. Psychiatric--normal affect. Results & Data Results & Data ([facility]) Vital Signs (Past 12 Hours) Vital Signs Temp Pulse Pulse Resp BP BP Pulse Ox 03/21/21 21:50 103 H 18 181/99 H 96 03/21/21 21:12 102 H 18 164/123 H 95 03/21/21 19:27 94 H 18 144/97 H 96 03/21/21 16:02 97.5 F L 103 H 20 161/97 H 95 Laboratory Results Laboratory Results WBC 23.67 K/uL (4.8-10.8) H 03/21/21 18:02 RBC 4.96 M/uL (4.2-5.4) 03/21/21 18:02 Hgb 14.7 g/dL (12.0-16.0) 03/21/21 18:02 Hct 42.8 % (37-47) 03/21/21 18:02 MCV 86.3 fL (80-100) 03/21/21 18:02 MCH 29.6 pg (25-34) 03/21/21 18:02 MCHC 34.3 g/dL (32-36) 03/21/21 18:02 RDW Std Deviation 41.4 fL (36.4-46.3) 03/21/21 18:02 RDW Coeff of Hanane 13.2 % (11.5-14.5) 03/21/21 18:02 Plt Count 362 K/uL (130-400) 03/21/21 18:02 MPV 10.3 fL (7.4-10.4) 03/21/21 18:02 Immature Gran % (Auto) 0.3 % 03/21/21 18:02 Neut % (Auto) 85.8 % 03/21/21 18:02 Lymph % (Auto) 9.4 % 03/21/21 18:02 Latimer % (Auto) 4.1 % 03/21/21 18:02 Eos % (Auto) 0.3 % 03/21/21 18:02 Baso % (Auto) 0.1 % 03/21/21 18:02 Neut # (Auto) 20.27 K/uL (1.4-6.5) H 03/21/21 18:02 Lymph # (Auto) 2.23 K/uL (1.2-3.4) 03/21/21 18:02 Latimer # (Auto) 0.98 K/uL (0.11-0.59) H 03/21/21 18:02 Eos # (Auto) 0.08 K/uL (0-0.5) 03/21/21 18:02 Baso # (Auto) 0.03 K/uL (0-0.2) 03/21/21 18:02 Immature Gran # (Auto) 0.08 K/uL (0.00-0.02) H 03/21/21 18:02 Absolute Nucleated RBC 0.00 K/uL (0-0) 03/21/21 18:02 Nucleated RBC % (auto) 0.0 % 03/21/21 18:02 Sodium 135 mmol/L (136-145) L 03/21/21 18:02 Potassium 3.6 mmol/L (3.5-5.1) 03/21/21 18:02 Chloride 101 mmol/L (98-107) 03/21/21 18:02 Carbon Dioxide 25 mmol/L (21-32) 03/21/21 18:02 Anion Gap 9.0 (3-11) 03/21/21 18:02 BUN 14 mg/dl (7-18) 03/21/21 18:02 Creatinine 0.80 mg/dl (0.6-1.2) 03/21/21 18:02 Est Cr Clr Drug Dosing 116.9 ml/min 03/21/21 18:02 Est GFR ( Amer) 112.3 ml/min 03/21/21 18:02 Est GFR (Non-Af Amer) 96.9 ml/min 03/21/21 18:02 BUN/Creatinine Ratio 17.8 (10-20) 03/21/21 18:02 Glucose 139 mg/dl (70-99) H 03/21/21 18:02 Calcium 9.2 mg/dl (8.5-10.1) 03/21/21 18:02 Total Bilirubin 1.6 mg/dl (0.2-1) H 03/21/21 18:02 AST 213 U/L (15-37) H 03/21/21 18:02 ALT 118 U/L (12-78) H 03/21/21 18:02 Alkaline Phosphatase 128 U/L (45-117) H 03/21/21 18:02 Total Protein 8.6 gm/dl (6.4-8.2) H 03/21/21 18:02 Albumin 3.8 gm/dl (3.4-5.0) 03/21/21 18:02 Globulin 4.8 gm/dl (2.5-4.0) H 03/21/21 18:02 Albumin/Globulin Ratio 0.8 (0.9-2) L 03/21/21 18:02 Lipase 86 U/L (73-393) 03/21/21 18:02 HCG, Qual Negative (Negative) 03/21/21 18:02 Urine Color Dark Yellow 03/21/21 18:02 Urine Appearance Clear (Clear) 03/21/21 18:02 Urine pH 7.0 (4.5-7.5) 03/21/21 18:02 Ur Specific Maynard 1.027 (1.000-1.030) 03/21/21 18:02 Urine Protein Negative (Negative) 03/21/21 18:02 Urine Glucose (UA) Negative (Negative) 03/21/21 18:02 Urine Ketones Trace (Negative) H 03/21/21 18:02 Urine Blood Negative (Negative) 03/21/21 18:02 Urine Nitrite Negative (Negative) 03/21/21 18:02 Urine Bilirubin 1+ (Negative) H 03/21/21 18:02 Urine Urobilinogen Positive (Negative) H 03/21/21 18:02 Ur Leukocyte Esterase Negative (Negative) 03/21/21 18:02 COVID-19 Eval Order Covid19 at [facility] 03/21/21 21:12 SARS-CoV-2 (PCR) NEGATIVE (Negative) 03/21/21 21:12 Impressions Gallbladder Ultrasound 03/21/21 19:15 US gallbladder CLINICAL HISTORY: 35 years-old Female presenting with ruq pain. TECHNIQUE: Real-time grayscale ultrasound imaging of the upper abdomen was performed for a focused evaluation at the site of clinical concern. COMPARISON: None. FINDINGS: Visualized portion of the pancreas shows no evidence of focal lesions. Liver is enlarged, measuring 22 cm in size with mild diffuse increase in echogenicity and coarsening of echotexture. No focal liver lesions or intrahe patic biliary dilatation seen. Gallbladder is fluid-filled with 2.7 cm mobile calculi. No evidence of pericholecystic edema, gallbladder wall thickening or sonographic Ricks's sign to suggest cholecystitis. Common bile duct is measuring 0.2 cm in size. Limited evaluation of right kidney shows no evidence of hydronephrosis. Right kidney is measuring 12.5 cm in length. IMPRESSION: 1. Cholelithiasis without sonographic evidence of cholecystitis. 2. Hepatic steatosis. Hepatomegaly. ACT 112: Negative or not required by law. Electronically signed by: Stephanie Grove DO 03/21/2021 10:01 PM Diagnostic Findings [facility] Patient: ROSALIND SANTIAGO (Female) : 89 Status: Date: 03/22/21 00:09 Room #: 355 History: RIGHT SIDED PAIN STARTED AROUND 11 AM. NAUSEA. NO VOMITTING. Slices: 208 Priors: community chest officer: Enoc Elizabeth @ [phone] Exams: MRCP Contrast: Accession Numbers: [id number] Referring Physician: REFERRED SELF Preliminary Findings Only See Final Report For Complete Findings MRCP : 2.1 cm diameter gallstone within the gallbladder. Gallbladder otherwise normal appearance without wall thickening or pericholecystic fluid. Liver is not enlarged measuring 24 cm length. No biliary dilatation. Intrahepatic and extrahepatic bile ducts normal in caliber. Distal common bile duct at the level of the pancreatic head is 3 mm. No definite intraductal calculus. Pancreatic duct is normal appearance. Pancreas is normal in appearance without evidence for pancreatitis. Small amount of left upper quadrant perisplenic/subdiaphragmatic fluid. Radiologist: Rufino Carlson M.D. Study ready at 00:14 and initial results transmitted at 00:22 *This report constitutes a preliminary interpretation only. Non-acute findings felt to be unrelated to the clinical presentation may not be discussed in this report. The study will be interpreted and a final report will be generated by the local Radiologist the following shift. To reach the hospital radiology department call [phone]. If a discrepancy is found between the preliminary and final interpretations of this study, please notify us via our Client Portal at [email or web address] QA Exams.You can also fax this report with a description of the discrepancy, or include the final report, to our daytime fax number [phone].If faxing, please indicate the severity of discrepancy using one of the following categories: [ ] 1 - Agree/Informational [ ] 2 - Unlikely to Affect Management [ ] 3 - Possible Eventual Change of Management [ ] 4 - Probable Immediate Change of Management For all other patient related information, please fax us at [phone]. [id number] Code Status & VTE Plan Code Status Full code VTE Prophylaxis Plan VTE Prophylaxis will be ordered: Yes PG Care Time/CCT Total # of Minutes Spent Total Time Spent with Patient: Total time spent is greater than 50% in coordination of care (as documented) at patient's floor/unit and/or counseling patient: Coding Level of Care Code 96594 Initial Inpt Care Lvl 3 Diagnoses Cholelithiasis K80.20 Abnormal LFTs R94.5 Right upper quadrant abdominal pain R10.11 Type 2 diabetes mellitus E11.9 Anxiety F41.9 HTN (hypertension) I10 Leukocytosis D72.829
--- NOTE | 2021-03-21 22:02 | Ultrasound Report ---
US gallbladder CLINICAL HISTORY: 35 years-old Female presenting with ruq pain. TECHNIQUE: Real-time grayscale ultrasound imaging of the upper abdomen was performed for a focused ev aluation at the site of clinical concern. COMPARISON: None. FINDINGS: Visualized portion of the pancreas shows no evidence of focal lesions. Liver is enlarged, measuring 22 cm in size with mild diffuse increase in echogenicity and coarsening of echotexture. No focal liver lesions or intrahepatic biliary dilatation seen. Gallbladder is fluid-filled with 2.7 cm mobile calculi. No evidence of pericholecystic edema, gallbla dder wall thickening or sonographic Ricks's sign to suggest cholecystitis. Common bile duct is measuring 0.2 cm in size. Limited evaluation of right kidney shows no evidence of hydronephrosis. Right kidney is measuring 12. 5 cm in length. IMPRESSION: 1. Cholelithiasis without sonographic evidence of cholecystitis. 2. Hepatic steatosis. Hepatomegaly. ACT 112: Negative or not required by law. Electronically signed by: Stephanie Grove DO 03/21/2021 10:01 PM
[2021-03-22] MEDS ORDERED: MoRPHine SULFATE 4 MG/ML 1 ML CARP\\VIAL IV PRN (00:10)
[2021-03-22] MEDS ORDERED: ONDANSETRON INJ 2 MG/ML 2 ML VIAL IV PRN ×2 (00:10→13:34)
[2021-03-22] MEDS ORDERED: PIPERACILL/TAZOBAC CONSULT ACTIVE PRN (00:10)
[2021-03-22] MEDS ORDERED: KETOROLAC TROMETHAMINE 15 MG/ML VIAL IV PRN (00:10)
[2021-03-22] MEDS: NSS + 20MEQ KCL 20 MEQ/1,000 ML BAG IV SCH ×3 (01:05→22:25)
[2021-03-22] MEDS: FAMOTIDINE 20 MG in SYRINGE 3 ML IV SCH ×3 (01:05→22:24)
[2021-03-22] MEDS: PIPERACILLIN/TAZOBACTAM 4.5 GM in DEXTROSE 5% 100 ML IV SCH ×3 (01:05→18:42)
[2021-03-22 02:58] LABS: Hepatitis B Surf Ag Rflx Conf Neg (Neg)
[2021-03-22 03:30] LABS: Hepatitis C IgG 13Yrs+Old_Rflx Neg (Neg)
[2021-03-22 06:34] LABS: Basophils # (auto) 0.02 K/uL (0-0.2); Basophils % (auto) 0.1 %; Eosinophils # (auto) 0.13 K/uL (0-0.5); Eosinophils % (auto) 0.9 %; Hemoglobin 13.5 g/dL (12.0-16.0); Immature Granulocytes # (auto) 0.05 K/uL (0.00-0.02); Immature Granulocytes % (auto) 0.3 %; Lymphocytes # (auto) 2.59 K/uL (1.2-3.4); Lymphocytes % (auto) 17.4 %; Mean Corpuscular Hemoglobin 30.2 pg (25-34); Mean Corpuscular Hgb Conc 34.6 g/dL (32-36); Mean Corpuscular Volume 87.2 fL (80-100); Mean Platelet Volume 10.3 fL (7.4-10.4); Monocytes # (auto) 0.87 K/uL (0.11-0.59); Monocytes % (auto) 5.9 %; Neutrophils # (auto) 11.19 K/uL (1.4-6.5); Neutrophils % (auto) 75.4 %; Platelet Count 325 K/uL (130-400); RDW Coefficient of Variation 13.5 % (11.5-14.5); RDW Standard Deviation 42.8 fL (36.4-46.3); Red Blood Count 4.47 M/uL (4.2-5.4); White Blood Count 14.85 K/uL (4.8-10.8)
[2021-03-22 07:31] LABS: Albumin Globulin Ratio 0.8 (0.9-2); Albumin Level 3.1 gm/dl (3.4-5.0); BUN Creatinine Ratio 15.1 (10-20); Calcium 8.2 mg/dl (8.5-10.1); Creatinine Clr Calc Pharmacy 152.2 ml/min; Est GFR (African American) 138.1 ml/min; Est GFR (Non-African American) 119.1 ml/min; Globulin 3.8 gm/dl (2.5-4.0); Magnesium 2.4 mg/dl (1.8-2.4); Potassium 3.2 mmol/L (3.5-5.1); Total Protein 6.9 gm/dl (6.4-8.2)
--- NOTE | 2021-03-22 07:43 | Magnetic Resonance Report ---
MRCP CLINICAL HISTORY: RUQ pain, abnormal LFT's TECHNIQUE: Utilizing a 1.5 Guillermina magnet and dedicated coil, multiplanar, multiecho imaging of the upp er abdomen was performed utilizing heavily T2 weighted pulsing sequences without IV contrast. COMPARISON STUDY: CT of the abdomen and pelvis July 12, 2012. Right upper quadrant ultrasound Mar. FINDINGS: Hepatic steatosis is better depicted on right upper quadrant ultrasound performed today. Th e liver is enlarged. No hepatic lesions are identified on this unenhanced exam. 2.2 cm gallstone with in the gallbladder is noted. There is no gallbladder wall thickening. No pericholecystic fluid. No in tra or extrahepatic biliary ductal dilatation is present. The common bile duct measures 3 mm in calib er. Apparent trace fluid under the left hemidiaphragm is probably artifactual. There are no definite common bile duct calculi. Apparent tiny filling defects within the common bile duct is likely artifac tual. IMPRESSION: 1. No biliary ductal dilatation. No definite common bile duct calculi. Apparent tiny filling defects within the common bile duct are likely artifactual. 2. Cholelithiasis. 3. Hepatomegaly. Hepatic steatosis. ACT 112: Negative or not required by law. Electronically signed by: Austen Liu M.D. 03/22/2021 7:42 AM
[2021-03-22] MEDS ORDERED: INDOMETHACIN 50 MG SUPP PR ONE ×2 (09:13→12:15)
--- NOTE | 2021-03-22 09:18 | Surgery Consultation ---
Date of Consultation March 22, 2021 Assessment & Plan (1) Cholelithiasis: (2) Acute cholecystitis due to biliary calculus: pt is a 35 year-old female who was admitted to hospital for RUQ pain, LFTs high, T, Bilirubin 2 IMP: acute cholecystitis, cholelithiasis, CBD stone, Plan, consult GI for ERCP, I recommend to do laparoscopic cholecystectomy possible open or cholangiogram after ERCP, D/W benefits, risks and alternatives of the surgery, the risks - infection, bleeding, injury other organs, incisional hernia, pt understood, she agree with the plan, I answered all questions, History of Present Illness Reason for Consultation: gallstone Requesting Physician: Tushar Meléndez DO Attending Physician: Tushar Meléndez DO History of Present Illness History of Present Illness Chief Complaint: The patient presents to the ED with complaint of RUQ abdominal pain, and nausea without vomiting that began late this morning, and later radiated around her right side toward her back. Primary Care Provider: Sylvester Mckeon MD The patient is a 35-year-old female with a past medical history including abnormalities type II, anxiety, hypertension, acanthosis nigra cans, eczema, morbid obesity, and rectocele. She presents with symptoms as noted above. Work-up in the emergency department including the following abnormal laboratories: WBC 23.67 with left shift, AST 213, ALT 118, total bilirubin 1.6 and glucose 139. Gallbladder ultrasound showed cholelithiasis without sonographic evidence of cholecystitis. Hepatic steatosis and hepatomegaly. I ( Karen Cortes MD) got a call for consult acute cholecystitis with gallstone, I reviewed pt's H/P, labs, U/S study and MRCP with pt, pt feels better, less RUQ pain, Allergies Allergy/AdvReac Type Severity Reaction Status Date / Time Sulfa (Sulfonamide Allergy Intermediate HIVES Verified 03/21/21 19:34 Antibiotics) Home Medications Medication Instructions Recorded Confirmed Type hydrochlorothiazide 25 mg tablet 25 mg PO DAILY #90 tab 11/15/20 03/21/21 Rx metformin 1,000 mg tablet 1,000 mg PO BIDM 03/21/21 03/21/21 History norethindrone (contraceptive) 0.35 0.35 mg PO HS 03/21/21 03/21/21 History mg tablet (Carly) sertraline 50 mg tablet 50 mg PO HS 03/21/21 03/21/21 History Past Med/Surg History Medical History Anxiety Asthmatic bronchitis Bartholin cyst Breast swelling Chronic constipation Esophageal reflux Hidradenitis suppurativa History of cardiac murmur HTN (hypertension) Hyperglobulinemia Morbid obesity Rectocele Type 2 diabetes mellitus Surgical History S/P surgical removal of pilonidal cyst Family History Grandfather (Maternal) Breast cancer Colorectal cancer Mother Arthritis Hypertension Family/Other Cancer Diabetes Hypertension Grandmother (Maternal) Breast cancer Denies family history of Ovarian cancer Social History Smoking Status: Former smoker Second Hand Exposure: No; Do You Dip or Chew Tobacco: No; Tobacco Cessation Education Requested by Patient: No Hx Alcohol Use: No Hx Substance Use: No Preferred Language: Ukrainian Communication Ability: Effective Visual Impairment: No Limitations Hearing Ability: Normal Assistant Manager Trainee Required: No Beliefs That Will Affect Care: None marital status: Current Living Situation: Spouse current occupation: Stay at home mom Other Information That Helps Us Care for You: No Feels Safe at Home: Yes Safety Concerns: Feels Safe At This Time Sexual Activity: has been sexually active within the last 12 months Assistive Devices: Glasses Allergies Allergy/AdvReac Type Severity Reaction Status Date / Time Sulfa (Sulfonamide Allergy Intermediate HIVES Verified 03/21/21 19:34 Antibiotics) Home Medications Medication Instructions Recorded Confirmed Type hydrochlorothiazide 25 mg tablet 25 mg PO DAILY #90 tab 11/15/20 03/21/21 Rx metformin 1,000 mg tablet 1,000 mg PO BIDM 03/21/21 03/21/21 History norethindrone (contraceptive) 0.35 0.35 mg PO HS 03/21/21 03/21/21 History mg tablet (Carly) sertraline 50 mg tablet 50 mg PO HS 03/21/21 03/21/21 History Patient History Medical History Anxiety Asthmatic bronchitis Bartholin cyst Breast swelling Chronic constipation Esophageal reflux Hidradenitis suppurativa History of cardiac murmur HTN (hypertension) Hyperglobulinemia Morbid obesity Rectocele Type 2 diabetes mellitus Surgical History S/P surgical removal of pilonidal cyst Family History Grandfather (Maternal) Breast cancer Colorectal cancer Mother Arthritis Hypertension Family/Other Cancer Diabetes Hypertension Grandmother (Maternal) Breast cancer Denies family history of Ovarian cancer Social History Smoking Status: Former smoker Second Hand Exposure: No; Do You Dip or Chew Tobacco: No; Tobacco Cessation Education Requested by Patient: No Hx Alcohol Use: No Hx Substance Use: No Preferred Language: Ukrainian Communication Ability: Effective Visual Impairment: No Limitations Hearing Ability: Normal Assistant Manager Trainee Required: No Beliefs That Will Affect Care: None marital status: Current Living Situation: Spouse current occupation: Stay at home mom Other Information That Helps Us Care for You: No Feels Safe at Home: Yes Safety Concerns: Feels Safe At This Time Sexual Activity: has been sexually active within the last 12 months Assistive Devices: Glasses Review of Systems Constitutional: obesity Eyes: as per Subjective / HPI Respiratory: as per Subjective / HPI Cardiovascular: Additional Comments: HTN Gastrointestinal: gallstone Genitourinary: as per Subjective / HPI Neurologic: as per Subjective / HPI Psychiatric: as per Subjective / HPI anxiety Endocrine: DM Physical Exam Constitutional: obesity Eyes: PERRL, conjunctivae normal, anicteric sclerae Neck: trachea midline, no thyromegaly Respiratory: normal respiratory effort, lungs clear to auscultation Cardiovascular: RRR, no murmur, no edema Gastrointestinal (Abdomen): soft, mild tenderness at RUQ, no rebound pain, no distend, BS + Musculoskeletal: no cyanosis or clubbing, extremities motor strength 5/5 Neurologic: patellar DTR's 2+ bilat, sensation intact Psychiatric: A+Ox3, euthymic affect Results & Data ([facility]) Vital Signs (Past 12 Hours) Vital Signs Temp Pulse Resp BP Pulse Ox 03/22/21 07:41 36.6 C 81 18 138/90 95 03/22/21 00:11 36.8 C 102 H 18 161/92 H 94 03/21/21 23:24 111 H 18 156/100 H 97 03/21/21 21:50 103 H 18 181/99 H 96 Laboratory Results Abnormal lab results 03/21/21 03/21/21 03/21/21 Range/Units 18:02 18:02 18:02 WBC 23.67 H (4.8-10.8) K/uL Neut # (Auto) 20.27 H (1.4-6.5) K/uL Forrest # (Auto) 0.98 H (0.11-0.59) K/uL Immature Gran # (Auto) 0.08 H (0.00-0.02) K/uL Sodium 135 L (136-145) mmol/L Potassium (3.5-5.1) mmol/L Glucose 139 H (70-99) mg/dl POC Glucose (70-99) mg/dl Calcium (8.5-10.1) mg/dl Total Bilirubin 1.6 H (0.2-1) mg/dl AST 213 H (15-37) U/L ALT 118 H (12-78) U/L Alkaline Phosphatase 128 H (45-117) U/L Total Protein 8.6 H (6.4-8.2) gm/dl Albumin (3.4-5.0) gm/dl Globulin 4.8 H (2.5-4.0) gm/dl Albumin/Globulin Ratio 0.8 L (0.9-2) Urine Ketones Trace H (Negative) Urine Bilirubin 1+ H (Negative) Urine Urobilinogen Positive H (Negative) 03/22/21 03/22/21 03/22/21 Range/Units 05:40 05:40 08:18 WBC 14.85 H (4.8-10.8) K/uL Neut # (Auto) 11.19 H (1.4-6.5) K/uL Forrest # (Auto) 0.87 H (0.11-0.59) K/uL Immature Gran # (Auto) 0.05 H (0.00-0.02) K/uL Sodium (136-145) mmol/L Potassium 3.2 L (3.5-5.1) mmol/L Glucose 120 H (70-99) mg/dl POC Glucose 129 H (70-99) mg/dl Calcium 8.2 L (8.5-10.1) mg/dl Total Bilirubin 2.0 H (0.2-1) mg/dl AST 259 H (15-37) U/L ALT 199 H (12-78) U/L Alkaline Phosphatase 122 H (45-117) U/L Total Protein (6.4-8.2) gm/dl Albumin 3.1 L (3.4-5.0) gm/dl Globulin (2.5-4.0) gm/dl Albumin/Globulin Ratio 0.8 L (0.9-2) Urine Ketones (Negative) Urine Bilirubin (Negative) Urine Urobilinogen (Negative) Diagnostic Findings MRCP CLINICAL HISTORY: RUQ pain, abnormal LFT's TECHNIQUE: Utilizing a 1.5 Guillermina magnet and dedicated coil, multiplanar, multiecho imaging of the upper abdomen was performed utilizing heavily T2 weighted pulsing sequences without IV contrast. COMPARISON STUDY: CT of the abdomen and pelvis July 12, 2012. Right upper quadrant ultrasound March 21, 2021. FINDINGS: Hepatic steatosis is better depicted on right upper quadrant ultrasound performed today. The liver is enlarged. No hepatic lesions are identified on this unenhanced exam. 2.2 cm gallstone within the gallbladder is noted. There is no gallbladder wall thickening. No pericholecystic fluid. No intra or extrahepatic biliary ductal dilatation is present. The common bile duct measures 3 mm in caliber. Apparent trace fluid under the left hemidiaphragm is probably artifactual. There are no definite common bile duct calculi. Apparent tiny filling defects within the common bile duct is likely artifactual. IMPRESSION: 1. No biliary ductal dilatation. No definite common bile duct calculi. Apparent tiny filling defects within the common bile duct are likely artifactual. 2. Cholelithiasis. 3. Hepatomegaly. Hepatic steatosis. US gallbladder CLINICAL HISTORY: 35 years-old Female presenting with ruq pain. TECHNIQUE: Real-time grayscale ultrasound imaging of the upper abdomen was pe rformed for a focused evaluation at the site of clinical concern. COMPARISON: None. FINDINGS: Visualized portion of the pancreas shows no evidence of focal lesions. Liver is enlarged, measuring 22 cm in size with mild diffuse increase in echogenicity and coarsening of echotexture. No focal liver lesions or intrahepatic biliary dilatation seen. Gallbladder is fluid-filled with 2.7 cm mobile calculi. No evidence of pericholecystic edema, gallbladder wall thickening or sonographic Ricks's sign to suggest cholecystitis. Common bile duct is measuring 0.2 cm in size. Limited evaluation of right kidney shows no evidence of hydronephrosis. Right kidney is measuring 12.5 cm in length. IMPRESSION: 1. Cholelithiasis without sonographic evidence of cholecystitis. 2. Hepatic steatosis. Hepatomegaly.
--- NOTE | 2021-03-22 09:50 | Gastrointestinal Consultation ---
Date of Consultation March 22, 2021 Assessment & Plan (1) Right upper quadrant abdominal pain: (2) Abnormal LFTs: (3) Leukocytosis: (4) Cholelithiasis: Pt is a 35 y/o female w RUQ abd pain radiating to back, nausea; noted to have leukocytosis and elevated LFTs, imaging studies signs of +hepatic steatosis, hepatomegaly, cholelithiasis, w/o biliary ductal dilation or apparent CBD stone. Concerning for possible cholangitis, cholecystitis. - Keep NPO - Plan for EUS/ERCP in OR by Dr. Edwards - Continue Zosyn IV - Avoid hepatotoxic meds - Trend LFTs - Surgery consulted for possible cholecystectomy Supervising Physician Co-Signing Physician Notes I saw and evaluated the patient. We were consulted for evaluation of leukocytosis and elevated liver setting times in the setting of abdominal pain. The findings are most compatible with choledocholithiasis. As the patient has had negative imaging thus far would suggest we proceed with upper endoscopy endoscopic ultrasound and likely ERCP this afternoon. Physical exam No obvious distress Mild scleral icterus Right upper quadrant tender to palpation Impression: Patient presents with signs and symptoms suggestive of choledocholithiasis. Given the constellation of findings we will proceed with upper endoscopy endoscopic ultrasound and likely ERCP this afternoon. We have discussed the risks of the procedure to include bleeding, infection, perforation , pancreatitis, failed biliary cannulation and need for follow-up studies. Recommendations Upper endoscopy endoscopic ultrasound today ERCP pending results Continue antibiotic coverage History of Present Illness Reason for Consultation: ERCP eval Requesting Physician: Dr. Karen Cortes Attending Physician: Dr. Lizbeth Edwards History of Present Illness Pt is a 35 y/o female seen for ERCP evaluation. She started having RUQ abd pain w radiation to back and nausea yesterday morning. Pain continues to intensify thus she came to ED yesterday afternoon. She denies associated jaundice, fever, chills, changes in bowel habits, pale colored stools. Noticed however her urine was darker since she was admitted. Upon eval, labs showed leukocytosis WBC 23K - > 14K (on Zosyn), LFTs up: Tbili 2, AST 259, ALT 199, alk phos 122. U/S and MRCP showed signs of gallstones, fatty liver, hepatomegaly, but no signs of biliary ductal dilation or apparent CBD stone. She denies new meds, herbal supplemments, APAP, ETOH, tobacco, illicit drugs Stay at home mother Denies family hx of autoimmune or liver dz. Grandmother w hx of OPERATIONS ARCHITECT cancers, Grandfather w hx of pancreatic ca (70s) and Uncle w leukemia (50s) Allergies Allergy/AdvReac Type Severity Reaction Status Date / Time Sulfa (Sulfonamide Allergy Intermediate HIVES Verified 03/21/21 19:34 Antibiotics) Home Medications Medication Instructions Recorded Confirmed Type hydrochlorothiazide 25 mg tablet 25 mg PO DAILY #90 tab 11/15/20 03/21/21 Rx metformin 1,000 mg tablet 1,000 mg PO BIDM 03/21/21 03/21/21 History norethindrone (contraceptive) 0.35 0.35 mg PO HS 03/21/21 03/21/21 History mg tablet (Carly) sertraline 50 mg tablet 50 mg PO HS 03/21/21 03/21/21 History Patient History Medical History Anxiety Asthmatic bronchitis Bartholin cyst Breast swelling Chronic constipation Esophageal reflux Hidradenitis suppurativa History of cardiac murmur HTN (hypertension) Hyperglobulinemia Morbid obesity Rectocele Type 2 diabetes mellitus Surgical History S/P surgical removal of pilonidal cyst Family History Grandfather (Maternal) Breast cancer Colorectal cancer Mother Arthritis Hypertension Family/Other Cancer Diabetes Hypertension Grandmother (Maternal) Breast cancer Denies family history of Ovarian cancer Social History Smoking Status: Former smoker Second Hand Exposure: No; Do You Dip or Chew Tobacco: No; Tobacco Cessation Education Requested by Patient: No Hx Alcohol Use: No Hx Substance Use: No Preferred Language: Brazilian Communication Ability: Effective Visual Impairment: No Limitations Hearing Ability: Normal Service Counter Cashier Required: No Beliefs That Will Affect Care: None marital status: Current Living Situation: Spouse current occupation: Stay at home mom Other Information That Helps Us Care for You: No Feels Safe at Home: Yes Safety Concerns: Feels Safe At This Time Sexual Activity: has been sexually active within the last 12 months Assistive Devices: Glasses Review of Systems Review of Systems: All systems reviewed & are unremarkable except as noted in HPI & below Physical Exam Constitutional: WD/WN, vitals as above well groomed, cooperative and comfortable Eyes: PERRL, conjunctivae normal, anicteric sclerae ENMT: external ear and nose normal, oropharynx normal Respiratory: normal respiratory effort, lungs clear to auscultation Cardiovascular: RRR, no murmur, no edema Gastrointestinal (Abdomen): RUQ TTP, BS present, abd soft Skin: no rashes, warm and dry no jaundice Psychiatric: A+Ox3, euthymic affect Lymphatic: no lymphedema Results & Data ([facility]) Vital Signs (Past 12 Hours) Vital Signs Temp Pulse Resp BP Pulse Ox 03/22/21 07:41 36.6 C 81 18 138/90 95 03/22/21 00:11 36.8 C 102 H 18 161/92 H 94 03/21/21 23:24 111 H 18 156/100 H 97 03/21/21 21:50 103 H 18 181/99 H 96
--- NOTE | 2021-03-22 10:33 | Anesthesiology Consultation ---
Date of Service March 22, 2021 Assessment & Plan (1) Encounter for pre-operative examination: Chart Review Chart Review: blasting entryman initiated History Surgery Operation Date: 03/22/21 12:15 Proposed Procedures p Endoscopic Retrograde Cholangiopancreatogram - Lizbeth Edwards DO s Endoscopic Ultrasonography Upper - Lizbeth Edwards DO Height/Weight Height: 5 ft 1 in Weight: 112 kg Allergies Allergy/AdvReac Type Severity Reaction Status Date / Time Sulfa (Sulfonamide Allergy Intermediate HIVES Verified 03/21/21 19:34 Antibiotics) Medications Home Medications Medication Instructions Recorded Confirmed Last Taken hydrochlorothiazide 25 mg tablet 25 mg PO DAILY #90 tab 11/15/20 03/21/21 03/21/21 metformin 1,000 mg tablet 1,000 mg PO BIDM 03/21/21 03/21/21 03/21/21 08:00 norethindrone (contraceptive) 0.35 0.35 mg PO HS 03/21/21 03/21/21 03/20/21 mg tablet (Carly) sertraline 50 mg tablet 50 mg PO 03/21/21 03/21/21 03/20/21 Active Medications Generic Name Dose Route Start Last Admin Trade Name Freq PRN Reason Stop Dose Admin Famotidine 20 mg/ Syringe 5 mls @ 2.5 mls/min 03/22/21 00:30 03/22/21 01:05 IV 04/21/21 00:29 2.5 mls/min Q12 TYRONE Administration Piperacillin Sod/Tazobactam 120 mls @ 30 mls/hr 03/22/21 02:00 03/22/21 05:08 Sod 4.5 gm/ Dextrose IV 04/01/21 01:59 Infused Q8H TYRONE Infusion Protocol Potassium Chloride/Sodium Chloride 20 meq in 1,000 mls @ 100 mls/hr 03/22/21 00:30 03/22/21 01:05 Normal Saline W/20 Meq Kcl IV 04/21/21 00:29 100 mls/hr .Q10H TYRONE Administration Past Medical History Medical History Anxiety Asthmatic bronchitis Bartholin cyst Breast swelling Chronic constipation Esophageal reflux Hidradenitis suppurativa History of cardiac murmur HTN (hypertension) Hyperglobulinemia Morbid obesity Rectocele Type 2 diabetes mellitus Past Family History Family History Grandfather (Maternal) Breast cancer Colorectal cancer Mother Arthritis Hypertension Family/Other Cancer Diabetes Hypertension Grandmother (Maternal) Breast cancer Denies family history of Ovarian cancer Past Surgical History Surgical History S/P surgical removal of pilonidal cyst Social History Smoking Status: Former smoker Do You Dip or Chew Tobacco: No Hx Alcohol Use: No Hx Substance Use: No Physical Exam Vital Signs Last Vital Signs Temp 97.9 F 03/22/21 07:41 Pulse 81 03/22/21 07:41 Resp 18 03/22/21 07:41 BP 138/90 03/22/21 07:41 Pulse Ox 95 03/22/21 07:41 Testing Laboratory Results 03/22/21 05:40 03/22/21 05:40 Urine Color Dark Yellow 03/21/21 18:02 Urine Appearance Clear (Clear) 03/21/21 18:02 Urine pH 7.0 (4.5-7.5) 03/21/21 18:02 Ur Specific [place] 1.027 (1.000-1.030) 03/21/21 18:02 Urine Protein Negative (Negative) 03/21/21 18:02 Urine Glucose (UA) Negative (Negative) 03/21/21 18:02 Urine Ketones Trace (Negative) H 03/21/21 18:02 Urine Nitrite Negative (Negative) 03/21/21 18:02 Ur Leukocyte Esterase Negative (Negative) 03/21/21 18:02 03/22/21 08:18 POC Glucose 129 H
[2021-03-22] MEDS ORDERED: SCOPOLAMINE 1 MG TDSY TD ONE (11:13)
--- NOTE | 2021-03-22 11:46 | Hospitalist Progress Note ---
Date of Service March 22, 2021 Assessment & Plan (1) Cholelithiasis: Plan: LFTs reviewed, continue to rise and Ultrasound shows no CBD obstruction or stone MRCP results reviewed Agree will need ERCP, this will be performed later today with GI. Continue antibiotics as ordered for now (2) Abnormal LFTs: Plan: See above Can continue to trend post procedure (3) Right upper quadrant abdominal pain: Plan: See above (4) Type 2 diabetes mellitus: Plan: Hold Metformin. Placed on Accu-Cheks before meals and at bedtime with NovoLog coverage per scale Check hemoglobin A1c (5) Anxiety: Plan: Temporarily hold sertraline while patient is n.p.o. (6) HTN (hypertension): Plan: Hold HCTZ (7) Leukocytosis: Plan: WBC 23.67 upon admission, now down to 14.8, continue to monitor Admission and Anticipated Discharge Date Admission Date: March 21, 2021 Subjective Patient seen and examined with nurse practitioner from GI in room. Patient was awake and alert, appeared to be comfortable. Notes that she has very mild abdominal pain in the right upper quadrant. Denies any nausea, vomiting, diarrhea, constipation. Has been n.p.o. Afebrile overnight. Mildly hypertensive per vitals. Physical Exam Constitutional: cooperative; no acute distress Neck: trachea midline, no thyromegaly Respiratory: normal respiratory effort Auscultation: lungs clear to auscultation bilaterally; no crackles, no rales, no rhonchi and no wheezes Cardiovascular: Rate/Rhythm: regular rate and regular rhythm Heart Sounds: normal S1 and normal S2 Gastrointestinal (Abdomen): Inspection/Auscultation: abdomen normal to inspection Percussion/Palpation: abdomen soft; abdomen nontender, no guarding, abdomen not rigid and no hepatosplenomegaly Skin: no rashes, warm and dry Nonjaundiced, anicteric Results & Data Results & Data ([facility]) Vital Signs (Past 12 Hours) Vital Signs Temp Pulse Resp BP Pulse Ox 03/22/21 11:02 36.6 C 82 20 157/98 H 94 03/22/21 07:41 36.6 C 81 18 138/90 95 03/22/21 00:11 36.8 C 102 H 18 161/92 H 94 Diagnostic Findings Laboratory Results WBC 14.85 K/uL (4.8-10.8) H 03/22/21 05:40 RBC 4.47 M/uL (4.2-5.4) 03/22/21 05:40 Hgb 13.5 g/dL (12.0-16.0) 03/22/21 05:40 Hct 39.0 % (37-47) 03/22/21 05:40 MCV 87.2 fL (80-100) 03/22/21 05:40 MCH 30.2 pg (25-34) 03/22/21 05:40 MCHC 34.6 g/dL (32-36) 03/22/21 05:40 RDW Std Deviation 42.8 fL (36.4-46.3) 03/22/21 05:40 RDW Coeff of Hanane 13.5 % (11.5-14.5) 03/22/21 05:40 Plt Count 325 K/uL (130-400) 03/22/21 05:40 MPV 10.3 fL (7.4-10.4) 03/22/21 05:40 Immature Gran % (Auto) 0.3 % 03/22/21 05:40 Neut % (Auto) 75.4 % 03/22/21 05:40 Lymph % (Auto) 17.4 % 03/22/21 05:40 Bonner % (Auto) 5.9 % 03/22/21 05:40 Eos % (Auto) 0.9 % 03/22/21 05:40 Baso % (Auto) 0.1 % 03/22/21 05:40 Neut # (Auto) 11.19 K/uL (1.4-6.5) H 03/22/21 05:40 Lymph # (Auto) 2.59 K/uL (1.2-3.4) 03/22/21 05:40 Bonner # (Auto) 0.87 K/uL (0.11-0.59) H 03/22/21 05:40 Eos # (Auto) 0.13 K/uL (0-0.5) 03/22/21 05:40 Baso # (Auto) 0.02 K/uL (0-0.2) 03/22/21 05:40 Immature Gran # (Auto) 0.05 K/uL (0.00-0.02) H 03/22/21 05:40 Absolute Nucleated RBC 0.00 K/uL (0-0) 03/21/21 18:02 Nucleated RBC % (auto) 0.0 % 03/21/21 18:02 Sodium 137 mmol/L (136-145) 03/22/21 05:40 Potassium 3.2 mmol/L (3.5-5.1) L 03/22/21 05:40 Chloride 105 mmol/L (98-107) 03/22/21 05:40 Carbon Dioxide 27 mmol/L (21-32) 03/22/21 05:40 Anion Gap 5.0 (3-11) 03/22/21 05:40 BUN 9 mg/dl (7-18) D 03/22/21 05:40 Creatinine 0.61 mg/dl (0.6-1.2) 03/22/21 05:40 Est Cr Clr Drug Dosing 152.2 ml/min 03/22/21 05:40 Est GFR ( Amer) 138.1 ml/min 03/22/21 05:40 Est GFR (Non-Af Amer) 119.1 ml/min 03/22/21 05:40 BUN/Creatinine Ratio 15.1 (10-20) 03/22/21 05:40 Glucose 120 mg/dl (70-99) H 03/22/21 05:40 POC Glucose 129 mg/dl (70-99) H 03/22/21 08:18 Calcium 8.2 mg/dl (8.5-10.1) L 03/22/21 05:40 Magnesium 2.4 mg/dl (1.8-2.4) 03/22/21 05:40 Total Bilirubin 2.0 mg/dl (0.2-1) H 03/22/21 05:40 AST 259 U/L (15-37) H 03/22/21 05:40 ALT 199 U/L (12-78) H 03/22/21 05:40 Alkaline Phosphatase 122 U/L (45-117) H 03/22/21 05:40 Total Protein 6.9 gm/dl (6.4-8.2) 03/22/21 05:40 Albumin 3.1 gm/dl (3.4-5.0) L 03/22/21 05:40 Globulin 3.8 gm/dl (2.5-4.0) 03/22/21 05:40 Albumin/Globulin Ratio 0.8 (0.9-2) L 03/22/21 05:40 Lipase 86 U/L (73-393) 03/21/21 18:02 HCG, Qual Negative (Negative) 03/21/21 18:02 Urine Color Dark Yellow 03/21/21 18:02 Urine Appearance Clear (Clear) 03/21/21 18:02 Urine pH 7.0 (4.5-7.5) 03/21/21 18:02 Ur Specific [place] 1.027 (1.000-1.030) 03/21/21 18:02 Urine Protein Negative (Negative) 03/21/21 18:02 Urine Glucose (UA) Negative (Negative) 03/21/21 18:02 Urine Ketones Trace (Negative) H 03/21/21 18:02 Urine Blood Negative (Negative) 03/21/21 18:02 Urine Nitrite Negative (Negative) 03/21/21 18:02 Urine Bilirubin 1+ (Negative) H 03/21/21 18:02 Urine Urobilinogen Positive (Negative) H 03/21/21 18:02 Ur Leukocyte Esterase Negative (Negative) 03/21/21 18:02 COVID-19 Eval Order Covid19 at [facility] 03/21/21 21:12 SARS-CoV-2 (PCR) NEGATIVE (Negative) 03/21/21 21:12 Hep Bs Antigen Neg (Neg) 03/21/21 18:02 Hepatitis C Antibody Neg (Neg) 03/21/21 18:02 Impressions Gallbladder Ultrasound 03/21/21 19:15 US gallbladder CLINICAL HISTORY: 35 years-old Female presenting with ruq pain. TECHNIQUE: Real-time grayscale ultrasound imaging of the upper abdomen was performed for a focused evaluation at the site of clinical concern. COMPARISON: None. FINDINGS: Visualized portion of the pancreas shows no evidence of focal lesions. Liver is enlarged, measuring 22 cm in size with mild diffuse increase in echogenicity and coarsening of echotexture. No focal liver lesions or intrahepatic biliary dilatation seen. Gallbladder is fluid-filled with 2.7 cm mobile calculi. No evidence of pericholecystic edema, gallbladder wall thickening or sonographic Ricks's sign to suggest cholecystitis. Common bile duct is measuring 0.2 cm in size. Limited evaluation of right kidney shows no evidence of hydronephrosis. Right kidney is measuring 12.5 cm in length. IMPRESSION: 1. Cholelithiasis without sonographic evidence of cholecystitis. 2. Hepatic steatosis. Hepatomegaly. ACT 112: Negative or not required by law. Electronically signed by: Stephanie Grove DO 03/21/2021 10:01 PM Cholangiopancreatography MRI 03/21/21 21:59 MRCP CLINICAL HISTORY: RUQ pain, abnormal LFT's TECHNIQUE: Utilizing a 1.5 Guillermina magnet and dedicated coil, multiplanar, multiecho imaging of the upper abdomen was performed utilizing heavily T2 weighted pulsing sequences without IV contrast. COMPARISON STUDY: CT of the abdomen and pelvis July 12, 2012. Right upper quadrant ultrasound March 21, 2021. FINDINGS: Hepatic steatosis is better depicted on right upper quadrant ultrasound performed today. The liver is enlarged. No hepatic lesions are identified on this unenhanced exam. 2.2 cm gallstone within the gallbladder is noted. There is no gallbladder wall thickening. No pericholecystic fluid. No intra or extrahepatic biliary ductal dilatation is present. The common bile duct measures 3 mm in caliber. Apparent trace fluid under the left hemidiaphragm is probably artifactual. There are no definite common bile duct calculi. Apparent tiny filling defects within the common bile duct is likely artifactual. IMPRESSION: 1. No biliary ductal dilatation. No definite common bile duct calculi. Apparent tiny filling defects within the common bile duct are likely artifactual. 2. Cholelithiasis. 3. Hepatomegaly. Hepatic steatosis. ACT 112: Negative or not required by law. Electronically signed by: Austen Liu M.D. 03/22/2021 7:42 AM PG Care Time/CCT Total # of Minutes Spent Total Time Spent with Patient: Total time spent is greater than 50% in coordination of care (as documented) at patient's floor/unit and/or counseling patient: Coding Level of Care Code 10622 Subseq Hosp Care Lvl 2 Diagnoses Cholelithiasis K80.20 Abnormal LFTs R94.5 Right upper quadrant abdominal pain R10.11 Type 2 diabetes mellitus E11.9 Anxiety F41.9 HTN (hypertension) I10 Leukocytosis D72.829
[2021-03-22] MEDS ORDERED: LIDOCAINE 2% 2 ML VIAL/AMP(20MG/ML) INFIL ONE (11:54)
[2021-03-22] MEDS ORDERED: ROCURONIUM BROMIDE 10 MG/ML 5 ML VIAL IV ONE (11:54)
[2021-03-22] MEDS ORDERED: PROPOFOL IV EMULSION 10 MG/ML 20 ML VIAL IV ONE (11:54)
[2021-03-22] MEDS ORDERED: MIDAZOLAM HCL 1 MG/ML 2ML VIAL ONE (11:55)
[2021-03-22] MEDS ORDERED: fentaNYL citrate 100 MCG/2 ML VIAL ONE (11:55)
--- NOTE | 2021-03-22 12:19 | GI REPORT ---
Patient Name: Zoya Morgan Procedure Date: 03/22/2021 11:46 AM Date of : 1985 Admit Type: Inpatient Age: 35 Gender: Female Attending MD: Lizbeth Edwards DO Procedure: Upper GI endoscopy Providers: Lizbeth Edwards DO Referring MD: Tushar Meléndez Do Indications: Epigastric abdominal pain Medicines: General Anesthesia Complications: No immediate complications. Estimated blood loss: Minimal. Estimated Blood Loss: Estimated blood loss was minimal. Procedure: Pre-Anesthesia Assessment: - Prior to the procedure, a History and Physical was performed, and patient medications, allergies and sensitivities were reviewed. The patient's tolerance of previous anesthesia was reviewed. - The risks and benefits of the procedure and the sedation options and risks were discussed with the patient. All questions were answered and informed consent was obtained. - Patient identification and proposed procedure were verified prior to the procedure by the physician, the nurse and the load dispatcher local. The procedure was verified in the procedure room. - Pre-procedure physical examination revealed no contraindications to sedation. - ASA Grade Assessment: II - A patient with mild systemic disease. - After reviewing the risks and benefits, the patient was deemed in satisfactory condition to undergo the procedure. - The anesthesia plan was to use general anesthesia. - Immediately prior to administration of medications, the patient was re-assessed for adequacy to receive sedatives. - The heart rate, respiratory rate, oxygen saturations, blood pressure, adequacy of pulmonary ventilation, and response to care were monitored throughout the procedure. - The physical status of the patient was re-assessed after the procedure. After obtaining informed consent, the endoscope was passed under direct vision. Throughout the procedure, the patient's blood pressure, pulse, and oxygen saturations were monitored continuously. The Endoscope was introduced through the mouth, and advanced to the third part of duodenum. The upper GI endoscopy was accomplished without difficulty. The patient tolerated the procedure well. Findings: The examined esophagus was normal. The Z-line was regular and was found 35 cm from the incisors. The entire examined stomach was normal. The examined duodenum was normal. Impression: - Normal esophagus. - Z-line regular, 35 cm from the incisors. - Normal stomach. - Normal examined duodenum. - No specimens collected. Recommendation: - Perform an upper endoscopic ultrasound (UEUS) today. Lizbeth Edwards D.O. Lizbeth Edwards, 03/22/2021 12:18:33 PM This report has been signed electronically. Note Initiated On: 03/22/2021 11:46 AM Number of Addenda: 0 I attest to the content of the Intraoperative Record and orders documented therein, exceptions below {[id number]}
--- NOTE | 2021-03-22 12:31 | GI REPORT ---
Patient Name: Zoya Morgan Procedure Date: 03/22/2021 11:52 AM Date of : 1985 Admit Type: Inpatient Age: 35 Gender: Female Attending MD: Lizbeth Edwards DO Procedure: Upper EUS Providers: Lizbeth Edwards DO Referring MD: Tushar Meléndez Do Indications: Elevated liver enzymes, Suspected choledocholithiasis Medicines: Monitored Anesthesia Care Complications: No immediate complications. Estimated blood loss: Minimal. Estimated Blood Loss: Estimated blood loss was minimal. Procedure: Pre-Anesthesia Assessment: - Prior to the procedure, a History and Physical was performed, and patient medications, allergies and sensitivities were reviewed. The patient's tolerance of previous anesthesia was reviewed. - The risks and benefits of the procedure and the sedation options and risks were discussed with the patient. All questions were answered and informed consent was obtained. - Patient identification and proposed procedure were verified prior to the procedure by the physician, the nurse and the adult services librarian. The procedure was verified in the procedure room. - Pre-procedure physical examination revealed no contraindications to sedation. - ASA Grade Assessment: II - A patient with mild systemic disease. - After reviewing the risks and benefits, the patient was deemed in satisfactory condition to undergo the procedure. - The anesthesia plan was to use general anesthesia. - Immediately prior to administration of medications, the patient was re-assessed for adequacy to receive sedatives. - The heart rate, respiratory rate, oxygen saturations, blood pressure, adequacy of pulmonary ventilation, and response to care were monitored throughout the procedure. - The physical status of the patient was re-assessed after the procedure. After obtaining informed consent, the endoscope was passed under direct vision. Throughout the procedure, the patient's blood pressure, pulse, and oxygen saturations were monitored continuously. The Scope was introduced through the mouth, and advanced to the third part of duodenum. The upper EUS was accomplished without difficulty. The patient tolerated the procedure well. Findings: ENDOSONOGRAPHIC FINDING: : There was no sign of significant endosonographic abnormality in the ampulla. No masses were identified. Many stones were visualized endosonographically in the common bile duct. The stones measured up to 5 mm in greatest dimension. They were hyperechoic and characterized by shadowing. Multiple stones and a large amount of sludge were visualized endosonographically in the gallbladder. They were hyperechoic and characterized by shadowing. There was no sign of significant endosonographic abnormality in the entire pancreas. The pancreatic duct measured up to 2 mm in diameter. No masses, no cysts, the pancreatic duct was thin in caliber. There was diffuse abnormal echotexture in the visualized portion of the liver. This was characterized by a hyperechoic appearance. There was no sign of significant endosonographic abnormality in the visualized portion of the left adrenal gland. No adrenal gland enlargement was identified. A few benign-appearing lymph nodes were visualized in the mario hepatis region. The nodes were round, hypoechoic and had poorly defined margins. No lymph nodes were seen during endosonographic examination in the celiac region (level 20). Impression: - There was no sign of significant pathology in the ampulla. - Many stones were visualized endosonographically in the common bile duct. - Stone and sludge filled gallbladder. - There was no sign of significant pathology in the entire pancreas. - There was diffuse abnormal echotexture in the visualized portion of the liver. This was characterized by a hyperechoic appearance consistent with fatty infiltration. - Endosonographic images of the left adrenal gland were unremarkable. - A few benign lymph nodes were visualized in the mario hepatis region. - No specimens collected. Recommendation: - Perform an ERCP today. Lizbeth Edwards D.O. Lizbeth Edwards, 03/22/2021 12:31:04 PM This report has been signed electronically. Note Initiated On: 03/22/2021 11:52 AM Number of Addenda: 0 I attest to the content of the Intraoperative Record and orders documented therein, exceptions below {[id number]}
--- NOTE | 2021-03-22 12:50 | Post Operative Brief Note ---
Immediate Post Op Note v1 Date of Surgery March 22, 2021 Pre & Post Diagnosis Operation Date: 03/22/21 12:15 Pre-Op Diagnosis: common bile duct stones Post-Op Diagnosis: common bile duct stones I identified the patient and participated in the time-out.: Yes Procedure Operation Date: 03/22/21 12:15 Actual Procedures p Endoscopic Retrograde Cholangiopancreatography(Not Applicable) - DO lon Murillo Upper Endoscopic Ultrasonography (Not Applicable) - DO lon Murillo Esophagogastroduodenoscopy(Not Applicable) - Lizbeth Edwards DO Surgeon Lizbeth Edwards DO Crossing Supervisor none Estimated Blood Loss 0 Findings Consistent with Post-Op Diagnosis
--- NOTE | 2021-03-22 12:50 | Communication Note ---
Date of Service: March 22, 2021 The patient underwent endoscopic evaluation of her abdominal discomfort and elevated liver tests. She was found to have multiple stones within her common b ile duct and a stone and sludge filled gallbladder. He underwent upper endoscopy and ERCP with removal of the common bile duct stones. I did place a biliary stent to allow drainage until cholecystectomy. Recommendations Continue antibiotic coverage Continue IV hydration overnight Watch for signs and symptoms of pancreatitis Cholecystectomy per general surgery Repeat ERCP for biliary stent removal in 6 to 8 weeks
--- NOTE | 2021-03-22 12:57 | GI REPORT ---
Patient Name: Zoya Morgan Procedure Date: 03/22/2021 11:48 AM Date of : 1985 Admit Type: Inpatient Age: 35 Gender: Female Attending MD: Lizbeth Edwards DO Procedure: ERCP Providers: Lizbeth Edwards DO Referring MD: Tushar Meléndez Do Indications: Abdominal pain of suspected biliary origin, Elevated liver enzymes Medicines: General Anesthesia Complications: No immediate complications. Estimated blood loss: Minimal. Estimated Blood Loss: Estimated blood loss was minimal. Procedure: Pre-Anesthesia Assessment: - Prior to the procedure, a History and Physical was performed, and patient medications, allergies and sensitivities were reviewed. The patient's tolerance of previous anesthesia was reviewed. - The risks and benefits of the procedure and the sedation options and risks were discussed with the patient. All questions were answered and informed consent was obtained. - Patient identification and proposed procedure were verified prior to the procedure by the physician, the nurse and the deliver driver. The procedure was verified in the procedure room. - Pre-procedure physical examination revealed no contraindications to sedation. - ASA Grade Assessment: II - A patient with mild systemic disease. - After reviewing the risks and benefits, the patient was deemed in satisfactory condition to undergo the procedure. - The anesthesia plan was to use general anesthesia. - Immediately prior to administration of medications, the patient was re-assessed for adequacy to receive sedatives. - The heart rate, respiratory rate, oxygen saturations, blood pressure, adequacy of pulmonary ventilation, and response to care were monitored throughout the procedure. - The physical status of the patient was re-assessed after the procedure. After obtaining informed consent, the scope was passed under direct vision. Throughout the procedure, the patient's blood pressure, pulse, and oxygen saturations were monitored continuously. The scope was introduced through the mouth, and advanced to the duodenum and used to inject contrast into the bile duct. The ERCP was accomplished without difficulty. The patient tolerated the procedure well. Findings: The supervisor of guidance and testing film was normal. The esophagus was successfully intubated under direct vision without detailed examination of the pharynx, larynx, and associated structures, and upper GI tract. The upper GI tract was grossly normal. The major papilla was normal. The bile duct was deeply cannulated with the short-nosed traction sphincterotome and 0.035 in Acrobat 2 guidewire (PD not injected or cannulated). Contrast was injected. I personally interpreted the bile duct images. Contrast extended to the hepatic ducts. The lower third of the main bile duct and middle third of the main bile duct contained three stones, the largest of which was 5 mm in diameter. Biliary sphincterotomy was made with a monofilament Fusion OMNI sphincterotome using ERBE electrocautery. There was no post-sphincterotomy bleeding. The biliary tree was swept with a 12 mm balloon starting at the bifurcation. Three stones were removed. No stones remained. One 10 Fr by 7 cm biliary stent with a single external flap and a single internal flap was placed 7 cm into the common bile duct. Bile flowed through the stent. The stent was in good position. The endoscope was withdrawn from the patient. Indomethacin 100 mg was given via suppository to decrease the risk of post-ERCP pancreatitis (PEP). Impression: - The major papilla appeared normal. - Choledocholithiasis was found. Complete removal was accomplished by biliary sphincterotomy and balloon extraction. - One biliary stent was placed into the common bile duct. - Indomethacin given to decrease risk of post-ERCP pancreatitis. Recommendation: - Avoid aspirin and nonsteroidal anti-inflammatory medicines for 1 week. - Clear liquid diet today. - Repeat ERCP in 6 weeks to remove stent. - Cholecystectomy per general surgery. Lizbeth Edwards D.O. Lizbeth Edwards, 03/22/2021 12:57:17 PM This report has been signed electronically. Note Initiated On: 03/22/2021 11:48 AM Number of Addenda: 0 I attest to the content of the Intraoperative Record and orders documented therein, exceptions below {[id number]}
[2021-03-22] MEDS ORDERED: GLYCOPYRROLATE 0.2 MG/ML VIAL ONE (13:09)
[2021-03-22] MEDS ORDERED: NEOSTIGMINE METHYLSULFATE 1 MG/ML 10ML VIAL ONE (13:09)
[2021-03-22] MEDS ORDERED: ONDANSETRON INJ 2 MG/ML 2 ML VIAL ONE (13:10)
[2021-03-22] MEDS ORDERED: DEXAMETHASONE SOD INJ 4 MG/ML VIAL ONE (13:10)
--- NOTE | 2021-03-22 13:23 | Fluoroscopy Report ---
[place] ERCP biliary ductal CLINICAL HISTORY: for ercp COMPARISON STUDY: MRCP and right upper quadrant ultrasound March 21, 2021. FLUOROSCOPY TIME: 40 seconds. FLUOROSCOPIC IMAGES: 24 FINDINGS: Fluoroscopy was provided during ERCP. Common bile duct is cannulated. Note is made of filli ng defects within the common bile duct. These may reflect calculi. A balloon sweep through the common bile duct was performed with placement of a stent within the common bile duct. Hepatic bile ducts ar e partially opacified. IMPRESSION: Fluoroscopy provided during ERCP with placement of a common bile duct stent. ACT 112: Negative or not required by law. Electronically signed by: Austen Liu M.D. 03/22/2021 1:21 PM
[2021-03-22] MEDS ORDERED: ATROPINE SULFATE 0.1 MG/ML 10ML SYR IV PRN (13:34)
[2021-03-22] MEDS ORDERED: fentaNYL citrate 100 MCG/2 ML VIAL IV PRN (13:34)
[2021-03-22] MEDS ORDERED: ePHEDrine sulfate 50 MG/ML AMP IV PRN (13:34)
--- NOTE | 2021-03-22 13:37 | Anesthesiology Progress Note ---
Date of Service March 22, 2021 Anesthesia Post Procedure Vital Signs Vital Signs: Temp Pulse Pulse Pulse Resp BP BP 03/22/21 13:35 70 18 137/82 03/22/21 13:20 98.4 F 62 18 130/82 03/22/21 13:10 72 18 134/79 03/22/21 13:00 98.6 F 94 H 20 159/89 H 03/22/21 11:02 97.9 F 82 20 157/98 H 03/22/21 07:41 97.9 F 81 18 138/90 03/22/21 00:11 98.2 F 102 H 18 161/92 H 03/21/21 23:24 111 H 18 156/100 H 03/21/21 21:50 103 H 18 181/99 H 03/21/21 21:12 102 H 18 164/123 H 03/21/21 19:27 94 H 18 144/97 H 03/21/21 16:02 97.5 F L 103 H 20 161/97 H Pulse Ox 03/22/21 13:35 96 03/22/21 13:20 95 03/22/21 13:10 94 03/22/21 13:00 91 03/22/21 11:02 94 03/22/21 07:41 95 03/22/21 00:11 94 03/21/21 23:24 97 03/21/21 21:50 96 03/21/21 21:12 95 03/21/21 19:27 96 03/21/21 16:02 95 Pain Intensity Abdomen: Pain Intensity: 7 Transfer of Care Handoff Completed per policy Notes Mental Status: alert / awake / arousable and participated in evaluation Patient Amnestic to Procedure: Yes Nausea / Vomiting: adequately controlled Pain: adequately controlled Airway Patency, RR, SpO2: stable & adequate BP & HR: stable & adequate Hydration State: stable & adequate Anesthetic Complications: no major complications apparent and Pt Satisfied with anesthetic care
--- NOTE | 2021-03-22 21:55 | Progress Note ---
Date of Service March 22, 2021 Assessment & Plan (1) Cholelithiasis: (2) Acute cholecystitis due to biliary calculus: Plan: pt is a 35 year-old female who was admitted to hospital for RUQ pain, LFTs high, T, Bilirubin 2 IMP: acute cholecystitis, cholelithiasis, CBD stone, Plan, consult GI for ERCP, I recommend to do laparoscopic cholecystectomy possible open or cholangiogram after ERCP, D/W benefits, risks and alternatives of the surgery, the risks - infection, bleeding, injury other organs, incisional hernia, pt understood, she agree with the plan, I answered all questions, Admission and Anticipated Discharge Date Admission Date: March 21, 2021 Supervising Physician Co-Signing Physician Notes I saw and evaluated the patient. We were consulted for evaluation of leukocytosis and elevated liver setting times in the setting of abdominal pain. The findings are most compatible with choledocholithiasis. As the patient has had negative imaging thus far would suggest we proceed with upper endoscopy endoscopic ultrasound and likely ERCP this afternoon. Physical exam No obvious distress Mild scleral icterus Right upper quadrant tender to palpation Impression: Patient presents with signs and symptoms suggestive of choledocholithiasis. Given the constellation of findings we will proceed with upper endoscopy endoscopic ultrasound and likely ERCP this afternoon. We have discussed the risks of the procedure to include bleeding, infection, perforation, pancreatitis, failed biliary cannulation and need for follow-up studies. Recommendations Upper endoscopy endoscopic ultrasound today ERCP pending results Continue antibiotic coverage Subjective Patient seen and examined with nurse practitioner from GI in room. Patient was awake and alert, appeared to be comfortable. Notes that she has very mild abdominal pain in the right upper quadrant. Denies any nausea, vomiting, diarrhea, constipation. Has been n.p.o. Afebrile overnight. Mildly hypertensive per vitals. Review of Systems Constitutional: obesity Eyes: as per Subjective / HPI Respiratory: as per Subjective / HPI Cardiovascular: Additional Comments: HTN Gastrointestinal: gallstone Genitourinary: as per Subjective / HPI Neurologic: as per Subjective / HPI Psychiatric: as per Subjective / HPI anxiety Endocrine: DM Physical Exam Eyes: PERRL, conjunctivae normal, anicteric sclerae Neck: trachea midline, no thyromegaly Respiratory: normal respiratory effort, lungs clear to auscultation Cardiovascular: RRR, no murmur, no edema Musculoskeletal: no cyanosis or clubbing, extremities motor strength 5/5 Neurologic: patellar DTR's 2+ bilat, sensation intact Psychiatric: A+Ox3, euthymic affect Results & Data ([facility]) Vital Signs (Past 12 Hours) Vital Signs Temp Pulse Pulse Resp BP Pulse Ox 03/22/21 19:00 36.9 C 83 20 137/68 93 03/22/21 16:46 36.7 C 66 20 121/82 95 03/22/21 16:00 36.6 C 66 22 125/77 94 03/22/21 14:57 36.8 C 67 18 133/87 91 03/22/21 14:15 36.7 C 78 16 138/73 90 03/22/21 13:35 70 18 137/82 96 03/22/21 13:20 36.9 C 62 18 130/82 95 03/22/21 13:10 72 18 134/79 94 03/22/21 13:00 37.0 C 94 H 20 159/89 H 91 03/22/21 11:02 36.6 C 82 20 157/98 H 94
--- NOTE | 2021-03-22 21:59 | Progress Note ---
Date of Service March 22, 2021 S/P ERCP, removed CBD stone, pt is stable, no significant abdominal pain, Assessment & Plan (1) Cholelithiasis: (2) Acute cholecystitis due to biliary calculus: Plan: pt is a 35 year-old female who was admitted to hospital for RUQ pain, LFTs high, T, Bilirubin 2 IMP: acute cholecystitis, cholelithiasis, CBD stone, Plan, consult GI for ERCP, I recommend to do laparoscopic cholecystectomy possible open or cholangiogram after ERCP, D/W benefits, risks and alternatives of the surgery, the risks - infection, bleeding, injury other organs, incisional hernia, pt understood, she agree with the plan, I answered all questions, 03/23/2021 9:57PM S/P ERCP, I recommend to do laparoscopic cholecystectomy, possible open or cholangiogram, D/W benefits, risks and alternatives of the surgery, the risks - infection, bleeding, injury other organs, incisional hernia, pt understood, she agrees with the surgery, she signed informed consent,I answered all questions, NPO after MN, Admission and Anticipated Discharge Date Admission Date: March 21, 2021 Supervising Physician Co-Signing Physician Notes I saw and evaluated the patient. We were consulted for evaluation of leukocytosis and elevated liver setting times in the setting of abdominal pain. The findings are most compatible with choledocholithiasis. As the patient has had negative imaging thus far would suggest we proceed with upper endoscopy endoscopic ultrasound and likely ERCP this afternoon. Physical exam No obvious distress Mild scleral icterus Right upper quadrant tender to palpation Impression: Patient presents with signs and symptoms suggestive of choledocholithiasis. Given the constellation of findings we will proceed with upper endoscopy endoscopic ultrasound and likely ERCP this afternoon. We have discussed the risks of the procedure to include bleeding, infection, perforation, pancreatitis, failed biliary cannulation and need for follow-up studies. Recommendations Upper endoscopy endoscopic ultrasound today ERCP pending results Continue antibiotic coverage Subjective Patient seen and examined with nurse practitioner from GI in room. Patient was awake and alert, appeared to be comfortable. Notes that she has very mild abdominal pain in the right upper quadrant. Denies any nausea, vomiting, diarrhea, constipation. Has been n.p.o. Afebrile overnight. Mildly hypertensive per vitals. Review of Systems Constitutional: obesity Eyes: as per Subjective / HPI Respiratory: as per Subjective / HPI Cardiovascular: Additional Comments: HTN Gastrointestinal: gallstone Genitourinary: as per Subjective / HPI Neurologic: as per Subjective / HPI Psychiatric: as per Subjective / HPI anxiety Endocrine: DM Physical Exam Eyes: PERRL, conjunctivae normal, anicteric sclerae Neck: trachea midline, no thyromegaly Respiratory: normal respiratory effort, lungs clear to auscultation Cardiovascular: RRR, no murmur, no edema Gastrointestinal (Abdomen): soft, mild tenderness at RUQ, no rebound pain, Musculoskeletal: no cyanosis or clubbing, extremities motor strength 5/5 Neurologic: patellar DTR's 2+ bilat, sensation intact Psychiatric: A+Ox3, euthymic affect Results & Data ([facility]) Vital Signs (Past 12 Hours) Vital Signs Temp Pulse Pulse Resp BP Pulse Ox 03/22/21 19:00 36.9 C 83 20 137/68 93 03/22/21 16:46 36.7 C 66 20 121/82 95 03/22/21 16:00 36.6 C 66 22 125/77 94 03/22/21 14:57 36.8 C 67 18 133/87 91 03/22/21 14:15 36.7 C 78 16 138/73 90 03/22/21 13:35 70 18 137/82 96 03/22/21 13:20 36.9 C 62 18 130/82 95 03/22/21 13:10 72 18 134/79 94 03/22/21 13:00 37.0 C 94 H 20 159/89 H 91 03/22/21 11:02 36.6 C 82 20 157/98 H 94
[2021-03-23] MEDS: PIPERACILLIN/TAZOBACTAM 4.5 GM in DEXTROSE 5% 100 ML IV SCH ×3 (01:43→17:17)
[2021-03-23 06:21] LABS: Hepatitis A Antibody IgM NON-REACTIVE (NON-REACTIVE); Hepatitis B Core Antibody IgM NON-REACTIVE (NON-REACTIVE)
[2021-03-23 07:41] LABS: Basophils # (auto) 0.02 K/uL (0-0.2); Basophils % (auto) 0.1 %; Eosinophils # (auto) 0.03 K/uL (0-0.5); Eosinophils % (auto) 0.1 %; Hematocrit (blood only) 39.3 % (37-47); Hemoglobin 12.9 g/dL (12.0-16.0); Immature Granulocytes % (auto) 0.5 %; Lymphocytes # (auto) 3.47 K/uL (1.2-3.4); Lymphocytes % (auto) 17.1 %; Mean Corpuscular Hemoglobin 29.3 pg (25-34); Mean Corpuscular Hgb Conc 32.8 g/dL (32-36); Mean Corpuscular Volume 89.3 fL (80-100); Mean Platelet Volume 10.3 fL (7.4-10.4); Monocytes # (auto) 1.15 K/uL (0.11-0.59); Monocytes % (auto) 5.7 %; Neutrophils # (auto) 15.54 K/uL (1.4-6.5); Neutrophils % (auto) 76.5 %; Platelet Count 338 K/uL (130-400); RDW Coefficient of Variation 13.6 % (11.5-14.5); RDW Standard Deviation 44.7 fL (36.4-46.3); White Blood Count 20.31 K/uL (4.8-10.8)
[2021-03-23] MEDS: FAMOTIDINE 20 MG in SYRINGE 3 ML IV SCH ×2 (08:08→20:00)
[2021-03-23] MEDS: NSS + 20MEQ KCL 20 MEQ/1,000 ML BAG IV SCH (08:08)
[2021-03-23 08:15] LABS: Albumin Level 3.1 gm/dl (3.4-5.0); BUN Creatinine Ratio 12.8 (10-20); Calcium 8.2 mg/dl (8.5-10.1); Creatinine Clr Calc Pharmacy 130.7 ml/min; Est GFR (African American) 129.7 ml/min; Est GFR (Non-African American) 111.9 ml/min; Magnesium 2.6 mg/dl (1.8-2.4); Potassium 3.5 mmol/L (3.5-5.1)
[2021-03-23 08:20] LABS: Albumin Globulin Ratio 0.7 (0.9-2); Bilirubin,Total 0.6 mg/dl (0.2-1); Globulin 4.2 gm/dl (2.5-4.0); Total Protein 7.3 gm/dl (6.4-8.2)
--- NOTE | 2021-03-23 08:31 | Gastroenterology Progress Note ---
Date of Service March 23, 2021 Assessment & Plan (1) Right upper quadrant abdominal pain: (2) Abnormal LFTs: (3) Leukocytosis: (4) Cholelithiasis: Plan: Pt is a 35 y/o female w RUQ abd pain radiating to back, nausea; noted to have leukocytosis and elevated LFTs, imaging studies signs of +hepatic steatosis, hepatomegaly, cholelithiasis, w/o biliary ductal dilation or apparent CBD stone. Concerning for possible cholangitis, cholecystitis. She is s/p ERCP on 03/22/21 w choledocholithiasis removal, biliary sphincterectomy and biliary stent placement. LFTs trending down. She is clinically feeling better. - Keep NPO for lap sumanth today by Surgery - Continue antibx coverage for 7-10 days - Avoid NSAIDs or ASA x 1 week - Repeat ERCP for biliary stent removal in 6-8 week's time - Trend LFTs - GI to sign off; pls recall prn Admission and Anticipated Discharge Date Admission Date: March 21, 2021 Supervising Physician Co-Signing Physician Notes I saw and evaluated the patient. She notes that she is feeling improved since her ERCP yesterday afternoon. The patient is to have further evaluation with cholecystectomy today. Please see above note for recommendations Repeat ERCP in 6 to 8 weeks Please call with any questions or concerns Subjective Pt reports feeling gassy but not having abd pain, also no n/v, CP, SOB. NPO for lap sumanth in OR today Review of Systems Review of Systems: All systems reviewed & are unremarkable except as noted in HPI & below Gastrointestinal: no abdominal pain, no heartburn, no nausea, no vomiting, no hematemesis, no pain with swallowing, no dysphagia, no cramping, no change in stools and no melena Physical Exam Constitutional: WD/WN, vitals as above well groomed, cooperative and comfortable Eyes: PERRL, conjunctivae normal, anicteric sclerae ENMT: external ear and nose normal, oropharynx normal Respiratory: normal respiratory effort, lungs clear to auscultation Cardiovascular: RRR, no murmur, no edema Gastrointestinal (Abdomen): normal bowel sounds, soft, nontender, no hepatosplenomegaly Skin: no rashes, warm and dry no jaundice Psychiatric: A+Ox3, euthymic affect Lymphatic: no lymphedema Results & Data ([facility]) Vital Signs (Past 12 Hours) Vital Signs Temp Pulse Resp BP Pulse Ox 03/23/21 07:55 36.6 C 62 16 108/71 91 03/23/21 03:45 36.7 C 68 18 109/60 96 03/22/21 23:20 36.8 C 55 L 20 136/59 L 95
--- NOTE | 2021-03-23 12:31 | History & Physical Bridge Note ---
Date of Service March 23, 2021 History & Physical Bridge Note I have examined the patient, reviewed the History & Physical and in the interval since the performance of the History & Physical I have noted the following changes of clinical significance: no changes noted Supervising Physician Co-Signing Physician Notes I saw and evaluated the patient. We were consulted for evaluation of leukocytosis and elevated liver setting times in the setting of abdominal pain. The findings are most compatible with choledocholithiasis. As the patient has had negative imaging thus far would suggest we proceed with upper endoscopy endoscopic ultrasound and likely ERCP this afternoon. Physical exam No obvious distress Mild scleral icterus Right upper quadrant tender to palpation Impression: Patient presents with signs and symptoms suggestive of choledocholithiasis. Given the constellation of findings we will proceed with upper endoscopy endoscopic ultrasound and likely ERCP this afternoon. We have discussed the risks of the procedure to include bleeding, infection, perforation, pancreatitis, failed biliary cannulation and need for follow-up studies. Recommendations Upper endoscopy endoscopic ultrasound today ERCP pending results Continue antibiotic coverage
--- NOTE | 2021-03-23 13:05 | Anesthesiology Consultation ---
Date of Service March 23, 2021 Assessment & Plan ASA ASA3 Proposed Anesthesia Anesthesia Type: General Risk / Benefits Reviewed With: PT / POA / Parent / Guardian, Accepts Plan and Informed Consent Obtained History Surgery Operation Date: 03/22/21 12:15 Proposed Procedures p Endoscopic Retrograde Cholangiopancreatogram - Lizbeth Edwards DO s Endoscopic Ultrasonography Upper - Lizbeth Edwards DO Operation Date: 03/23/21 12:30 Proposed Procedures p Laparoscopic Cholecystectomy - Karen Cortes MD Height/Weight Height: 5 ft 1 in Weight: 112 kg Allergies Allergy/AdvReac Type Severity Reaction Status Date / Time Sulfa (Sulfonamide Allergy Intermediate HIVES Verified 03/21/21 19:34 Antibiotics) Medications Home Medications Medication Instructions Recorded Confirmed Last Taken hydrochlorothiazide 25 mg tablet 25 mg PO DAILY #90 tab 11/15/20 03/21/21 03/21/21 metformin 1,000 mg tablet 1,000 mg PO BIDM 03/21/21 03/21/21 03/21/21 08:00 norethindrone (contraceptive) 0.35 0.35 mg PO HS 03/21/21 03/21/21 03/20/21 mg tablet (Carly) sertraline 50 mg tablet 50 mg PO HS 03/21/21 03/21/21 03/20/21 Active Medications Generic Name Dose Route Start Last Admin Trade Name Kaity PRN Reason Stop Dose Admin Famotidine 20 mg/ Syringe 5 mls @ 2.5 mls/min 03/22/21 00:30 03/23/21 08:08 IV 04/21/21 00:29 2.5 mls/min Q12 TYRONE Administration Piperacillin Sod/Tazobactam 120 mls @ 30 mls/hr 03/22/21 02:00 03/23/21 10:54 Sod 4.5 gm/ Dextrose IV 04/01/21 01:59 30 mls/hr Q8H TYRONE Administration Protocol Potassium Chloride/Sodium Chloride 20 meq in 1,000 mls @ 100 mls/hr 03/22/21 00:30 03/23/21 08:08 Normal Saline W/20 Meq Kcl IV 04/21/21 00:29 100 mls/hr .Q10H TYRONE Administration NPO Date Last Intake of Fluids: 03/22/21 Time Last Intake of Fluids: 22:00 Date Last Intake of Solids: 03/22/21 Time Last Intake of Solids: 18:00 Past Medical History Medical History Anxiety Asthmatic bronchitis Bartholin cyst Breast swelling Chronic constipation Esophageal reflux Hidradenitis suppurativa History of cardiac murmur HTN (hypertension) Hyperglobulinemia Morbid obesity Rectocele Type 2 diabetes mellitus Exercise / Class Metabolic Activity II 4-5 Yardwork/Stairs/Walk up hill Past Family History Family History Grandfather (Maternal) Breast cancer Colorectal cancer Mother Arthritis Hypertension Family/Other Cancer Diabetes Hypertension Grandmother (Maternal) Breast cancer Denies family history of Ovarian cancer Past Surgical History Surgical History S/P surgical removal of pilonidal cyst Past Anesthesia History No Hx of Anesthesia Complications and No Family Hx of Anesthesia Complications History of PONV No Hx of PONV and No Hx of Motion Sickness Social History Smoking Status: Former smoker Do You Dip or Chew Tobacco: No Hx Alcohol Use: No Hx Substance Use: No Review of Systems denies fever/cough/ colds/ chest pain/ SOB/ CHETNA denies CHETNA Physical Exam Vital Signs Last Vital Signs Temp 36.7 C 03/23/21 12:28 Pulse 20 L 03/23/21 12:28 Resp 20 03/23/21 12:28 BP 132/94 03/23/21 12:28 Pulse Ox 98 03/23/21 12:28 ENMT Mouth: no TMJ abnormality and no dentition abnormality Thyromental Distance: > or= 3.5 Finger Breadths Mallampati Class: II Neck neck extension not limited Respiratory normal respiratory effort; no respiratory distress Auscultation: lungs clear to auscultation bilaterally Cardiovascular Rate/Rhythm: regular rate and regular rhythm Neurologic moves all extremities Psychiatric Orientation: alert and oriented x 3 Testing Laboratory Results 03/23/21 07:01 03/23/21 07:01 Urine Color Dark Yellow 03/21/21 18:02 Urine Appearance Clear (Clear) 03/21/21 18:02 Urine pH 7.0 (4.5-7.5) 03/21/21 18:02 Ur Specific Stebbins 1.027 (1.000-1.030) 03/21/21 18:02 Urine Protein Negative (Negative) 03/21/21 18:02 Urine Glucose (UA) Negative (Negative) 03/21/21 18:02 Urine Ketones Trace (Negative) H 03/21/21 18:02 Urine Nitrite Negative (Negative) 03/21/21 18:02 Ur Leukocyte Esterase Negative (Negative) 03/21/21 18:02 03/23/21 05:52 POC Glucose 129 H
[2021-03-23] MEDS ORDERED: ATROPINE SULFATE 0.1 MG/ML 10ML SYR IV PRN (13:07)
[2021-03-23] MEDS ORDERED: HYDROmorphone INJ 2 MG/ML SYR/VIAL IV PRN (13:07)
[2021-03-23] MEDS ORDERED: ePHEDrine sulfate 50 MG/ML AMP IV PRN (13:07)
[2021-03-23] MEDS ORDERED: ONDANSETRON INJ 2 MG/ML 2 ML VIAL IV PRN (13:07)
[2021-03-23] MEDS ORDERED: PROPOFOL IV EMULSION 10 MG/ML 20 ML VIAL IV ONE (13:13)
[2021-03-23] MEDS ORDERED: MIDAZOLAM HCL 1 MG/ML 2ML VIAL ONE (13:13)
[2021-03-23] MEDS ORDERED: LIDOCAINE 2% 2 ML VIAL/AMP(20MG/ML) INFIL ONE (13:13)
[2021-03-23] MEDS ORDERED: fentaNYL citrate 100 MCG/2 ML VIAL ONE ×3 (13:13→16:14)
[2021-03-23] MEDS ORDERED: ROCURONIUM BROMIDE 10 MG/ML 5 ML VIAL IV ONE (13:13)
[2021-03-23] MEDS ORDERED: ONDANSETRON INJ 2 MG/ML 2 ML VIAL ONE (13:13)
[2021-03-23] MEDS ORDERED: BUPIVACAINE 0.5 % 5 MG/1 ML MPF 30ML VIAL ONE (13:30)
[2021-03-23] MEDS ORDERED: LIDOCAINE 1% LOCAL 20 ML VIAL ONE (13:31)
[2021-03-23] MEDS ORDERED: GLYCOPYRROLATE 0.2 MG/ML VIAL ONE (15:04)
[2021-03-23] MEDS ORDERED: DEXAMETHASONE SOD INJ 4 MG/ML VIAL ONE (15:04)
[2021-03-23] MEDS ORDERED: NEOSTIGMINE METHYLSULFATE 1 MG/ML 10ML VIAL ONE (15:04)
[2021-03-23] MEDS ORDERED: KETOROLAC 30 MG/ML VIAL ONE (15:21)
--- NOTE | 2021-03-23 15:23 | Post Operative Brief Note ---
Immediate Post Op Note v1 Date of Surgery March 23, 2021 Pre & Post Diagnosis Operation Date: 03/22/21 12:15 Pre-Op Diagnosis: common bile duct stones Post-Op Diagnosis: common bile duct stones Operation Date: 03/23/21 12:30 Pre-Op Diagnosis: acute cholecystitis, cholelithiasis Post-Op Diagnosis: acute cholecystitis, cholelithiasis I identified the patient and participated in the time-out.: Yes Procedure Operation Date: 03/22/21 12:15 Actual Procedures p Endoscopic Retrograde Cholangiopancreatography(Not Applicable) - DO lon Murillo Upper Endoscopic Ultrasonography (Not Applicable) - DO lon Murillo Esophagogastroduodenoscopy(Not Applicable) - Lizbeth Edwards DO Operation Date: 03/23/21 12:30 laparoscopic cholecystectomy Surgeon Karen Cortes MD [employer] surgical nurse practitioner Estimated Blood Loss 20 Findings Consistent with Post-Op Diagnosis acute cholecystitis, cholelithiasis Fluids 700ml Specimens gallbladder Anesthesia Type General Complications none Disposition Accompanied Patient To Recovery: Yes
[2021-03-23] MEDS: fentaNYL citrate 100 MCG/2 ML VIAL IV PRN ×3 (15:38→16:15)
[2021-03-23] MEDS ORDERED: LACTATED RINGER'S 1,000 ML IV SCH (16:00)
--- NOTE | 2021-03-23 16:07 | Anesthesiology Progress Note ---
Date of Service March 23, 2021 Anesthesia Post Procedure Vital Signs Vital Signs: Temp Pulse Pulse Resp BP Pulse Ox 03/23/21 16:00 75 18 143/87 H 95 03/23/21 15:50 69 12 142/89 H 97 03/23/21 15:40 68 15 149/88 H 98 03/23/21 15:34 36.5 C 78 15 142/88 H 94 03/23/21 12:28 36.7 C 77 20 L 20 132/94 98 03/23/21 07:55 36.6 C 62 16 108/71 91 03/23/21 03:45 36.7 C 68 18 109/60 96 03/22/21 23:20 36.8 C 55 L 20 136/59 L 95 03/22/21 19:00 36.9 C 83 20 137/68 93 03/22/21 16:46 36.7 C 66 20 121/82 95 Pain Intensity Abdomen: Pain Intensity: 3 Transfer of Care Handoff Completed per policy Notes Mental Status: alert / awake / arousable and participated in evaluation Patient Amnestic to Procedure: Yes Nausea / Vomiting: adequately controlled Pain: adequately controlled Airway Patency, RR, SpO2: stable & adequate BP & HR: stable & adequate Hydration State: stable & adequate Anesthetic Complications: no major complications apparent and Pt Satisfied with anesthetic care
[2021-03-23] MEDS ORDERED: metFORMIN HCL 500 MG TAB PO SCH (17:00)
[2021-03-23] MEDS ORDERED: CARBOHYDRATES FOR HYPOGLYCEMIA PO PRN (17:23)
[2021-03-23] MEDS ORDERED: GLUCOSE 40% GEL 15 GM TUBE PO PRN (17:23)
[2021-03-23] MEDS ORDERED: DEXTROSE 50% 50 ML SYRINGE IV PRN (17:23)
[2021-03-23] MEDS ORDERED: GLUCAGON FOR INJ 1 MG VIAL SQ PRN (17:23)
[2021-03-23] MEDS ORDERED: GLUCOSE 10 TABS/TUBE PO PRN (17:23)
--- NOTE | 2021-03-23 17:26 | Hospitalist Progress Note ---
Date of Service March 23, 2021 Assessment & Plan (1) Acute cholecystitis due to biliary calculus: Plan: ERCP performed yesterday and stent placed. Laparoscopic cholecystectomy today Postoperative management per general surgery Continue antibiotics per surgery (2) Cholelithiasis: Plan: General surgery and GI consulted ERCP yesterday with stent placement Will need outpatient follow-up for stent removal (3) Type 2 diabetes mellitus: Plan: Hold Metformin Will initiate sliding scale insulin - no basal coverage at this time Hemoglobin A1c in November was 9.5% Check repeat hemoglobin A1c in the morning (4) HTN (hypertension): Plan: BP 142/89 Continue HCTZ Monitor vitals per protocol (5) Anxiety: Plan: Continue Sertraline (6) DVT prophylaxis: Plan: No chemical prophylaxis Ambulate as tolerated Admission and Anticipated Discharge Date Admission Date: March 21, 2021 Subjective Patient seen and examined at bedside this morning. ERCP yesterday with stent placement. Anticipate laparoscopic cholecystectomy with general surgery later today. Patient denies any significant abdominal pain. No nausea or vomiting. No hematemesis. Patient further denies fever, chills, sweats, rigors. Patient c urrently n.p.o. No acute complaints Review of Systems Review of Systems: All systems reviewed & are unremarkable except as noted in Subjective Physical Exam Physical Exam: GENERAL : No acute distress EYES: No icterus, gaze conjugate NOSE: No evidence of epistaxis MOUTH: No lesions or candidiasis NECK: Supple LUNGS: CTA B/L, no wheezes, rales or rhonchi HEART: Regular, rate controlled ABDOMEN: Soft, NT, ND, BS Present. Slight tenderness to palpation at the right upper quadrant. Otherwise no rebound tenderness or guarding with palpation EXTREMITIES: No LE edema, pedal pulses intact NEURO: A&OX3 Results & Data Results & Data ([facility]) Vital Signs (Past 12 Hours) Vital Signs Temp Pulse Pulse Resp BP Pulse Ox 03/23/21 17:00 37.6 C H 75 16 142/89 H 93 03/23/21 16:20 72 18 144/85 H 95 03/23/21 16:10 36.4 C L 76 17 142/89 H 93 03/23/21 16:00 75 18 143/87 H 95 03/23/21 15:50 69 12 142/89 H 97 03/23/21 15:40 68 15 149/88 H 98 03/23/21 15:34 36.5 C 78 15 142/88 H 94 03/23/21 12:28 36.7 C 77 20 L 20 132/94 98 03/23/21 07:55 36.6 C 62 16 108/71 91 Laboratory Results 03/23/21 07:01 03/23/21 07:01 PG Care Time/CCT Total # of Minutes Spent Total Time Spent with Patient: Total time spent is greater than 50% in coordination of care (as documented) at patient's floor/unit and/or counseling patient: 20 minutes Coding Level of Care Code 10553 Subseq Hosp Care Lvl 2 Diagnoses Acute cholecystitis due to biliary calculus K80.00 Cholelithiasis K80.20 Type 2 diabetes mellitus E11.9 HTN (hypertension) I10 DVT prophylaxis Z29.9 Anxiety F41.9 Time Spent (min) 20
[2021-03-23] MEDS ORDERED: PHARMACY GLYCEMIC MGMT CONSULT PRN (18:13)
--- NOTE | 2021-03-23 18:22 | Pharmacy Report ---
Pharmacy Glycemic Short Note 2 - Date of Service March 23, 2021 - Glycemic Short BSG Results (Last 24 hours): 03/22/21 03/23/21 03/23/21 21:12 05:52 07:01 Glucose 106 H POC Glucose 144 H 129 H 03/23/21 15:35 Glucose POC Glucose 161 H OUTPATIENT ANTIDIABETIC REGIMEN: * Metformin 1000 mg BIDM * A1c 9.5 % 11/29/20, current A1c pending in AM ASSESSMENT: * BSGs have been adequately controlled in the past 24 hours without addition of insulin, underwent cholecystectomy today, clear liquid diet started * Will initiate Novolog and hold on basal for now as fasting BSGs within goal range. Will start Novolog between weight based stress of 1 and 2. Tighten as needed. PLAN FOR INPATIENT GLYCEMIC CONTROL: * Hold outpatient oral diabetes medications * Basal insulin * Hold * Bolus insulin * NovoLog per scale ACHS or Q6hrs while NPO * Goal Range: Low 110 mg/dL - High 140 mg/dL * Correction Factor: 25 mg/dL/unit * Nutritional / Prandial insulin per carb ratio of 1 unit per 12 grams CHO consumed
--- NOTE | 2021-03-23 18:29 | Operative Report (OR) ---
DATE OF PROCEDURE: 03/23/2021. PREOPERATIVE DIAGNOSES: Acute cholecystitis and cholelithiasis. POSTOPERATIVE DIAGNOSES: Acute cholecystitis and cholelithiasis. PROCEDURE: Laparoscopic cholecystectomy. SURGEON: Karen Cortes MD. ANESTHESIA: General. ESTIMATED BLOOD LOSS: About 20. FINDINGS: Acute cholecystitis, cholelithiasis. COMPLICATIONS: None. INDICATIONS: This is a 35-year-old female who was admitted to the hospital for acute cholecystitis, cholelithiasis and the patient had an ERCP done yesterday and I recommended to do laparoscopic cholec ystectomy, possible open, possible cholangiogram. I did talk to the patient about the benefit the ri sk, alternate procedure. I indicated the risks may include, but not limited to, such as bleeding, in fection, injury to common bile duct, injury to the bowel, incisional hernia. The patient understands . She signed informed consent and I answered all questions. DETAILS OF PROCEDURE: After we identified the patient and verified the procedure, we brought the pat ient to the OR, put the patient on the supine position. The patient received SCD on bilateral legs t o prevent DVT. Also, patient received Zosyn 3.375 grams IV for prophylactic antibiotic and the patie nt received general anesthesia without difficulty. The abdomen was prepped and draped in routine evy rile fashion. After time-out, I injected the local anesthesia by using 1% lidocaine mixed with 0.5% Marcaine just above the umbilicus. Then I made a small incision just above the umbilicus, opened fas giovanni, opened peritoneum under direct vision, put a Dalton trocar in connected to CO2 to create pneumop eritoneum, flow rate was 6 liter per minute, pressure not more than 14 mmHg. Once we get a nice pneu moperitoneum, we put a camera in and looked around the abdomen, shows normal finding on the liver; ho wever, the gallbladder shows significant gallbladder wall thickening, edema, confirmed diagnosis of a cute cholecystitis. Once confirmed diagnosis of acute cholecystitis, we put another two 5 mm trocars on the right upper quadrant while the 11 trocar on the epigastric area. Once all trocars in, we use d the grasper to hold the base of gallbladder, put in the direction to the diaphragm, another grasper to hold the pouch of gallbladder, put a lateral to expunge the triangle of Calot. The cystic duct w as identified and mobilized. I put two 10 mm metal clips on the proximal cystic duct around the dist al cystic duct. Then I used a scissor to transection of cystic duct and rechecked, no bile leak. Th e cystic artery was identified and mobilized. I put two 10 mm metal clips on the cystic artery proxi aminata and one distally. Then I used a scissor to transection of the cystic artery rechecked, no acti ve bleeding. Then, we used the Bovie to take down gallbladder from liver bed. Rechecked no active b leeding and no bile leaking from the liver bed. Then, we removed gallbladder through the catch bag. Then, we reinserted Dalton trocar in connected to CO2 to create pneumoperitoneum again looked around the abdomen, no active bleeding, no bile leak from the liver bed. Then, we removed all trocars unde r direct vision. No active bleeding from the trocar site. Pneumoperitoneum was released, then I leila sed the umbilical incision fascial layer by using 0 Vicryl [id number] x2, closed subcutaneous la ricky by using 2-0 Vicryl interruptedly, closed skin by using 4-0 Vicryl continuous running, closed the epigastric incision fascial layer by using 0 Vicryl [id number] x2, closed subcutaneous layer by using 2-0 Vicryl interruptedly, closed skin by using 4-0 Vicryl interruptedly, closed another two 5 mm trocars site of skin only by using 4-0 Vicryl. Then, we put the dressing on. The patient tolerat ed the procedure well. All instrument, needle and sponge counts were correct x2 at the end of the ca se. Patient transferred to recovery room in stable condition. The specimen was sent to pathology. After procedure I did talk to the patient about the OR finding and the procedure we did, she understa donna. Job ID: [id number]
[2021-03-23] MEDS ORDERED: SERTRALINE HCL 50 MG TABLET PO SCH (21:00)
[2021-03-23] MEDS: INSULIN ASPART 100 UNITS/ML 3 ML PEN SC SCH ×2 (21:17→21:19)
[2021-03-23] MEDS: traMADol HCL 50 MG TABLET PO PRN (21:44)
[2021-03-24] MEDS: PIPERACILLIN/TAZOBACTAM 4.5 GM in DEXTROSE 5% 100 ML IV SCH ×2 (01:37→10:45)
[2021-03-24] MEDS: traMADol HCL 50 MG TABLET PO PRN (08:20)
[2021-03-24] MEDS: FAMOTIDINE 20 MG in SYRINGE 3 ML IV SCH (08:22)
[2021-03-24] MEDS: INSULIN ASPART 100 UNITS/ML 3 ML PEN SC SCH ×3 (08:42→18:10)
[2021-03-24 08:44] LABS: Basophils # (auto) 0.03 K/uL (0-0.2); Basophils % (auto) 0.2 %; Eosinophils # (auto) 0.04 K/uL (0-0.5); Eosinophils % (auto) 0.2 %; Hematocrit (blood only) 37.1 % (37-47); Hemoglobin 12.2 g/dL (12.0-16.0); Immature Granulocytes # (auto) 0.06 K/uL (0.00-0.02); Immature Granulocytes % (auto) 0.3 %; Lymphocytes # (auto) 4.32 K/uL (1.2-3.4); Lymphocytes % (auto) 25.2 %; Mean Corpuscular Hemoglobin 29.5 pg (25-34); Mean Corpuscular Hgb Conc 32.9 g/dL (32-36); Mean Corpuscular Volume 89.6 fL (80-100); Mean Platelet Volume 10.2 fL (7.4-10.4); Monocytes # (auto) 1.03 K/uL (0.11-0.59); Neutrophils # (auto) 11.67 K/uL (1.4-6.5); Neutrophils % (auto) 68.1 %; Platelet Count 321 K/uL (130-400); RDW Coefficient of Variation 13.6 % (11.5-14.5); RDW Standard Deviation 45.2 fL (36.4-46.3); Red Blood Count 4.14 M/uL (4.2-5.4); White Blood Count 17.15 K/uL (4.8-10.8)
[2021-03-24] MEDS ORDERED: hydroCHLOROthiazide 25 MG TAB PO SCH (09:00)
[2021-03-24 09:12] LABS: Estimated Average Glucose 137 mg/dl; Hemoglobin A1C 6.4 % (4.5-5.6)
[2021-03-24 09:18] LABS: BUN Creatinine Ratio 18.4 (10-20); Calcium 8.4 mg/dl (8.5-10.1); Creatinine Clr Calc Pharmacy 149.7 ml/min; Est GFR (African American) 137.3 ml/min; Est GFR (Non-African American) 118.5 ml/min; Magnesium 2.3 mg/dl (1.8-2.4); Potassium 3.3 mmol/L (3.5-5.1)
[2021-03-24 09:21] LABS: Albumin Globulin Ratio 0.8 (0.9-2); Bilirubin,Total 0.5 mg/dl (0.2-1)
[2021-03-24] MEDS ORDERED: POTASSIUM CHLORIDE CRTAB 20 MEQ TABCR PO STA (09:27)
--- NOTE | 2021-03-24 12:05 | Progress Note ---
Date of Service March 24, 2021 Assessment & Plan (1) Cholelithiasis: (2) Acute cholecystitis due to biliary calculus: Plan: pt is a 35 year-old female who was admitted to hospital for RUQ pain, LFTs high, T, Bilirubin 2 IMP: acute cholecystitis, cholelithiasis, CBD stone, Plan, consult GI for ERCP, I recommend to do laparoscopic cholecystectomy possible open or cholangiogram after ERCP, D/W benefits, risks and alternatives of the surgery, the risks - infection, bleeding, injury other organs, incisional hernia, pt understood, she agree with the plan, I answered all questions, 03/23/2021 9:57PM S/P ERCP, I recommend to do laparoscopic cholecystectomy, possible open or cholangiogram, D/W benefits, risks and alternatives of the surgery, the risks - infection, bleeding, injury other organs, incisional hernia, pt understood, she agrees with the surgery, she signed informed consent,I answered all questions, NPO after MN, 03/24/2021 12PM, Post-op lap sumanth, pod 1 doing fine, pt can be discharged home today, - regular diet -keep the dressing on for 4 days, she can take a shower on 03/28/2021, -no heavy lifting > 25 LBS for 4 weeks, - no driving while taking pain medicine, -F/U Dr. Cortes 2 weeks, , sign off today, Thanks, Admission and Anticipated Discharge Date Admission Date: March 21, 2021 Supervising Physician Co-Signing Physician Notes I saw and evaluated the patient. She notes that she is feeling improved since her ERCP yesterday afternoon. The patient is to have further evaluation with cholecystectomy today. Please see above note for recommendations Repeat ERCP in 6 to 8 weeks Please call with any questions or concerns Subjective Patient seen and examined at bedside this morning. ERCP yesterday with stent placement. Anticipate laparoscopic cholecystectomy with general surgery later today. Patient denies any significant abdominal pain. No nausea or vomiting. No hematemesis. Patient further denies fever, chills, sweats, rigors. Patient currently n.p.o. No acute complaints 03/24/2021 11:58AM Dr. Cortes F/U S/P lap sumanth, POD 1 pt is doing fine, no significant abdominal pain, no nausea, no vomiting, tolerated diet, Review of Systems Constitutional: obesity Eyes: as per Subjective / HPI Respiratory: as per Subjective / HPI Cardiovascular: Additional Comments: HTN Gastrointestinal: gallstone Genitourinary: as per Subjective / HPI Neurologic: as per Subjective / HPI Psychiatric: as per Subjective / HPI anxiety Endocrine: DM Physical Exam Eyes: PERRL, conjunctivae normal, anicteric sclerae Neck: trachea midline, no thyromegaly Respiratory: normal respiratory effort, lungs clear to auscultation Cardiovascular: RRR, no murmur, no edema Gastrointestinal (Abdomen): soft, mild tenderness at incision site, no rebound pain, all incisions intact, no redness, BS + Musculoskeletal: no cyanosis or clubbing, extremities motor strength 5/5 Neurologic: patellar DTR's 2+ bilat, sensation intact Psychiatric: A+Ox3, euthymic affect Results & Data ([facility]) Vital Signs (Past 12 Hours) Vital Signs Temp Pulse Pulse Resp BP Pulse Ox 03/24/21 08:01 36.8 C 78 20 154/92 H 95 03/24/21 04:00 36.9 C 77 18 146/83 H 94 Laboratory Results Abnormal lab results 03/23/21 03/23/21 03/24/21 Range/Units 15:35 21:00 08:08 WBC 17.15 H (4.8-10.8) K/uL RBC 4.14 L (4.2-5.4) M/uL Neut # (Auto) 11.67 H (1.4-6.5) K/uL Lymph # (Auto) 4.32 H (1.2-3.4) K/uL [place] # (Auto) 1.03 H (0.11-0.59) K/uL Immature Gran # (Auto) 0.06 H (0.00-0.02) K/uL Potassium (3.5-5.1) mmol/L POC Glucose 161 H 149 H (70-99) mg/dl Hemoglobin A1c (4.5-5.6) % Calcium (8.5-10.1) mg/dl AST (15-37) U/L ALT (12-78) U/L Alkaline Phosphatase (45-117) U/L Albumin (3.4-5.0) gm/dl Albumin/Globulin Ratio (0.9-2) 03/24/21 03/24/2103/24/21 Range/Units 08:08 08:08 08:17 WBC (4.8-10.8) K/uL RBC (4.2-5.4) M/uL Neut # (Auto) (1.4-6.5) K/uL Lymph # (Auto) (1.2-3.4) K/uL [place] # (Auto) (0.11-0.59) K/uL Immature Gran # (Auto) (0.00-0.02) K/uL Potassium 3.3 L (3.5-5.1) mmol/L POC Glucose 100 H (70-99) mg/dl Hemoglobin A1c 6.4 H (4.5-5.6) % Calcium 8.4 L (8.5-10.1) mg/dl AST 38 H (15-37) U/L ALT 120 H (12-78) U/L Alkaline Phosphatase 121 H (45-117) U/L Albumin 3.0 L (3.4-5.0) gm/dl Albumin/Globulin Ratio 0.8 L (0.9-2)
--- NOTE | 2021-03-24 14:25 | Pharmacy Report ---
Pharmacy Glycemic Short Note 2 - Date of Service March 24, 2021 - Glycemic Short BSG Results (Last 24 hours): 03/23/21 03/23/21 03/24/21 15:35 21:00 08:08 Glucose 94 POC Glucose 161 H 149 H 03/24/21 03/24/21 08:17 12:08 Glucose POC Glucose 100 H 112 H OUTPATIENT ANTIDIABETIC REGIMEN: * Metformin 1000 mg BIDM * A1c 9.5 % 11/29/20, current A1c pending in AM ASSESSMENT: 03/24: * Pt only received total of 1 unit of bolus insulin yesterday. She has not been eating very well. No basal insulin needed. * Fasting BSG today was 100 mg/dl. Continued current orders for Novolog. * So far today, patient has not needed any insulin d/t no po intake and BSGs at goal. 03/23: * BSGs have been adequately controlled in the past 24 hours without addition of insulin, underwent cholecystectomy today, clear liquid diet started * Will initiate Novolog and hold on basal for now as fasting BSGs within goal range. Will start Novolog between weight based stress of 1 and 2. Tighten as needed. PLAN FOR INPATIENT GLYCEMIC CONTROL: * Hold outpatient oral diabetes medications * Basal insulin * None * Bolus insulin: continued * NovoLog per scale ACHS or Q6hrs while NPO * Goal Range: Low 110 mg/dL - High 140 mg/dL * Correction Factor: 25 mg/dL/unit * Nutritional / Prandial insulin per carb ratio of 1 unit per 12 grams CHO consumed Plan for discharge: * HbA1c obtained today = 6.4% indicates good glycemic control on oral Metformin at home. * Recommend continue oral Metformin 1000 mg PO BID with meals upon discharge. Resume once patient is eating her meals well.
[2021-03-24] MEDS ORDERED: bisacodyL 10 MG SUPP PR STA (14:54)
[2021-03-24 18:39] VITALS: BP 133/76; PULSE 74; TEMP 98.4; O2SAT 95
--- NOTE | 2021-03-24 18:43 | Discharge Summary ---
Date of Service date of admission - March 21, 2021 date of discharge - March 24, 2021 Admission HPI Per Admitting Provider The patient is a 35-year-old female with a past medical history including abnormalities type II, anxiety, hypertension, acanthosis nigra cans, eczema, morbid obesity, and rectocele. She presents with right-sided abdominal pain. Her symptoms started fairly abruptly around 11:00 today, roughly 8 hours ago now. It was a constant, achy pain that steadily increased and became more sharp and stabbing. She states that it was at its worst between 2 and 3:00 this afternoon, then began to decrease on its own. The worst pain she would have rated a 9/10. She currently rates her pain a 5/10. She states that it began to wrap around to her right back. She felt nauseous but did not vomit. She never had symptoms similar to this previously. Work-up in the emergency department included the following abnormal laboratories: WBC 23.67 with left shift, AST 213, ALT 118, total bilirubin 1.6 and glucose 139. Gallbladder ultrasound showed cholelithiasis without sono graphic evidence of cholecystitis along with hepatic steatosis and hepatomegaly. Principal Diagnosis 1. acute cholecystitis 2. choledocholithiasis Discharge Exam Gen: NAD, obese Eyes: nonicteric Mouth: MMM Heart: RRR, s1 s2, no murmur Lungs: CTA b/l Abd: mildly distended, BS+, minimal incisional tenderness Ext: no edema Skin: abdominal wall incisions clean/dry/intact; no jaundice Discharge Data Allergies Allergy/AdvReac Type Severity Reaction Status Date / Time Sulfa (Sulfonamide Allergy Intermediate HIVES Verified 03/28/21 11:15 Antibiotics) Consultations [facility] Gastroenterology [facility] General Surgery Procedures Performed Operation Date: 03/22/21 12:15 Actual Procedures p Endoscopic Retrograde Cholangiopancreatography(Not Applicable) - DO lon Murillo Upper Endoscopic Ultrasonography (Not Applicable) - DO lon Murillo Esophagogastroduodenoscopy(Not Applicable) - Lizbeth Edwards DO Endoscopic u/s: - There was no sign of significant pathology in the ampulla. - Many stones were visualized endosonographically in the common bile duct. - Stone and sludge filled gallbladder. - There was no sign of significant pathology in the entire pancreas. - There was diffuse abnormal echotexture in the visualized portion of the liver. This was characterized by a hyperechoic appearance consistent with fatty infiltration. - Endosonographic images of the left adrenal gland were unremarkable. - A few benign lymph nodes were visualized in the mario hepatis region. ERCP: - The major papilla appeared normal. - Choledocholithiasis was found. Complete removal was accomplished by biliary sphincterotomy and balloon extraction. - One biliary stent was placed into the common bile duct. - Indomethacin given to decrease risk of post-ERCP pancreatitis. Operation Date: 03/23/21 12:30 Actual Procedures p Laparoscopic Cholecystectomy(Not Applicable) - Karen Cortes MD Ordered Studies Gallbladder Ultrasound 03/21/21 19:15 US gallbladder CLINICAL HISTORY: 35 years-old Female presenting with ruq pain. TECHNIQUE: Real-time grayscale ultrasound imaging of the upper abdomen was performed for a focused evaluation at the site of clinical concern. COMPARISON: None. FINDINGS: Visualized portion of the pancreas shows no evidence of focal lesions. Liver is enlarged, measuring 22 cm in size with mild diffuse increase in echogenicity and coarsening of echotexture. No focal liver lesions or intrahepatic biliary dilatation seen. Gallbladder is fluid-filled with 2.7 cm mobile calculi. No evidence of pericholecystic edema, gallbladder wall thickening or sonographic Ricks's sign to suggest cholecystitis. Common bile duct is measuring 0.2 cm in size. Limited evaluation of right kidney shows no evidence of hydronephrosis. Right kidney is measuring 12.5 cm in length. IMPRESSION: 1. Cholelithiasis without sonographic evidence of cholecystitis. 2. Hepatic steatosis. Hepatomegaly. ACT 112: Negative or not required by law. Electronically signed by: Stephanie Grove DO 03/21/2021 10:01 PM Cholangiopancreatography MRI 03/21/21 21:59 MRCP CLINICAL HISTORY: RUQ pain, abnormal LFT's TECHNIQUE: Utilizing a 1.5 Guillermina magnet and dedicated coil, multiplanar, multiecho imaging of the upper abdomen was performed utilizing heavily T2 weighted pulsing sequences without IV contrast. COMPARISON STUDY: CT of the abdomen and pelvis July 12, 2012. Right upper quadrant ultrasound March 21, 2021. FINDINGS: Hepatic steatosis is better depicted on right upper quadrant ultrasound performed today. The liver is enlarged. No hepatic lesions are identified on this unenhanced exam. 2.2 cm gallstone within the gallbladder is noted. There is no gallbladder wall thickening. No pericholecystic fluid. No intra or extrahepatic biliary ductal dilatation is present. The common bile duct measures 3 mm in caliber. Apparent trace fluid under the left hemidiaphragm is probably artifactual. There are no definite common bile duct calculi. Apparent tiny filling defects within the common bile duct is likely artifactual. IMPRESSION: 1. No biliary ductal dilatation. No definite common bile duct calculi. Apparent tiny filling defects within the common bile duct are likely artifactual. 2. Cholelithiasis. 3. Hepatomegaly. Hepatic steatosis. ACT 112: Negative or not required by law. Electronically signed by: Austen Liu M.D. 03/22/2021 7:42 AM Endo Retro Cholangiopancreatogram 03/22/21 09:11 [place] ERCP biliary ductal CLINICAL HISTORY: for ercp COMPARISON STUDY: MRCP and right upper quadrant ultrasound March 21, 2021. FLUOROSCOPY TIME: 40 seconds. FLUOROSCOPIC IMAGES: 24 FINDINGS: Fluoroscopy was provided during ERCP. Common bile duct is cannulated. Note is made of filling defects within the common bile duct. These may reflect calculi. A balloon sweep through the common bile duct was performed with placement of a stent within the common bile duct. Hepatic bile ducts are partially opacified. IMPRESSION: Fluoroscopy provided during ERCP with placement of a common bile duct stent. ACT 112: Negative or not required by law. Electronically signed by: Austen Liu M.D. 03/22/2021 1:21 PM Hospital Course (1) Acute cholecystitis: (2) Status post cholecystectomy: (3) Choledocholithiasis: (4) Liver enzyme elevation: (5) Morbid obesity: (6) Type 2 diabetes mellitus: (7) HTN (hypertension): (8) Hypokalemia: Patient was admitted to the med/surg floor and initiated on IV antibiotics. Both GI and general surgery were consulted for her suspected choledocholithiasis and acute cholecystitis, respectively. She ultimately under went ERCP where several CBD stones were extracted and biliary stent was placed. Cholangitis was NOT seen on ERCP. The following day she underwent an uncomplicated laparoscopic cholecystectomy. After her lap sumanth she was started on a clear liquid diet and she tolerated such. LFTs improved following her ERCP with stent placement as well as her lap sumanth. During her stay her vitals remained stable, she had a bowel movement, was ambulating, and surgical incisions were intact. She will need to have her CBD stent removed in 6 weeks post-discharge with Alma Hanna . NSAIDs should be avoided for 7 days. She will follow-up with Dr Cortes with general surgery in 2 weeks post-discharge. LFTs should be rechecked at time of hospital follow-up to ensure normalization. Finally, a potassium supplement was advised due to chronic HCTZ use as well as low potassium levels during her stay. Total Time Total Time Spent Total Time Spent (In Minutes): 40 Discharge Plan Discharge Items Patient Disposition: Home - Self-Care Reason For Visit: Abdominal pain, concern for cholecystitis Discharge Diagnosis: 1. acute cholecystitis (sick gall bladder) -- removal of gall bladder by Dr Cortes 2. choledocholithiasis (gallstones in the bile duct) -- removal of stones by way of ERCP procedure by Dr Edwards 3. abnormal liver tests - due to #1 and #2 - improving Activity: As commented below Lifting: No more than 25 pounds Lifting Comment: lifting restriction is for 4 weeks Bathing: Keep incision dry Bathing Comment: "sponge baths" until 03/28/21, then ok to shower at that time Sexual Activity: Wait until after follow-up appointment Exercise/Sports: Wait until after follow-up appointment Driving/Machine Use: No driving if taking narcotic pain killer medication (oxycodone) Non-emergency contact: Primary Care Provider, Surgeon and St[facility]man Call non-emergency contact if: you have any medication questions, your symptoms worsen, your pain is not controlled, your pain is worsening, you have a fever, your wound has increased redness and your wound has increased drainage Follow-up/Referrals: Sylvester Mckeon MD [Primary Care Provider] - 03/28/21 11:15 am Lizbeth Edwards DO [Physician] - (6 weeks - for removal of bile duct stent) Karen Cortes MD [Physician] - (2 weeks for post-op check ) Diet: Full liquid and Low Fat Addtl Attending Provider Instructions: Mrs Morgan, John were treated for cholecystitis as well as gallstones that had traveled into the bile duct. The former was treated with laparoscopic cholecystectomy, and the latter with "ERCP" procedure. You now have a stent in your bile duct and all stones were removed from the duct during the ERCP by Dr Edwards. Your gall bladder was removed by Dr Cortes. Following your procedures you overall did nicely and tolerated advancement of your diet. You did have mild constipation and "sleepy bowels" following your procedures. This is not uncommon with abdominal surgery. Recommendations - 1. avoid tylenol (acetaminophen) until your liver function tests are rechecked and found to be normal 2. avoid anti-inflammatory pills for 5 additional days. This includes aspirin, ibuprofen, motrin, alleve, naprosyn, etc. 3. ok to take oxycodone pain killer medication -- 5mg every 6 hours as needed for pain * do not drive if taking oxycodone * do not drink alcohol if taking oxycodone * the oxycodone can make you sleepy -- caution with its use * the oxycodone can also make you constipated (see below) 4. for constipation - * you can continue your stool softener * please add miralax once daily (or even up to twice daily) 5. diet - * full liquids today * then low fat, diabetic diet starting tomorrow * a high fat diet may lead to diarrhea since your gall bladder is now gone * see handouts 6. your potassium level was mildly low during your stay because of your hydrochlorothiazide blood pressure medication. Please take a potassium supplement daily when you take the hydrochlorothiazide to keep the potassium normal. 7. may remove dressings from abdominal wall incisions on 03/29/21 8. finally, know that the recent antibiotics in the hospital may have reduced the effectiveness of your control pill. When you are cleared to resume sexual activity by your surgeon be sure to use a 2nd form of control until the time of your next menses. Follow-up - see separate section Return to [facility] if - * you have fevers over 100 degrees * you have any concerns that your incisions are infected * you have severe constipation or you are not passing gas from your rectum * you have vomiting * you have uncontrolled abdominal pain * any other concerns Best wishes for a speedy recovery! -Dr Abbasi Pending Studies at Discharge: No Stand-Alone Forms: [facility], Smoking Cessation Medications and DC Order Prescriptions: New potassium chloride 10 mEq tablet extended release 10 meq PO DAILY Qty: 30 RF: 2 Continued hydrochlorothiazide 25 mg tablet 25 mg PO DAILY Qty: 90 RF: 1 norethindrone (contraceptive) [Carly] 0.35 mg tablet 0.35 mg PO HS RF: 0 sertraline 50 mg tablet 50 mg PO HS RF: 0 No Action metformin 1,000 mg tablet 1,000 mg PO BIDM Qty: 180 RF: 3 Stool Softener 50 mg capsule 50 mg PO DAILY RF: 0 Discharge Orders: Discharge Order (Routine); Ordered 03/24/21 Ordered By: Irvin Kemp/Other Patient Handouts: ERCP Endoscopic Retrograde ..., Cholecystectomy Laparoscopic Dc Admission Data Admit Date/Time: 03/21/21 21:59 Attending Provider: Irvin Abbasi Admit Provider: Fabricio Mejia Primary Care Provider: Sylvester Mckeon V. Other Providers: Fabricio Mejia ; Calos Brown ; Maura Gregory ; Devendra Keating ; Denice Han ; Bridger Gill ; Lizbeth Edwards ; Roberta Cerda ; Javi Arnold ; Kelley Mccauley ; Candis Patel ; Carine Wiley ; Karma Pretty ; Manuel Huynh Other Interventions: Discharge Summary Assessment (RN) Last Done: 03/24/21 18:36 Coding Level of Care Code D/C DAY MANAGEMENT >30 MINS Diagnoses Acute cholecystitis K81.0 Status post cholecystectomy Z90.49 Choledocholithiasis K80.50 Liver enzyme elevation R74.8 Morbid obesity E66.01 Type 2 diabetes mellitus E11.9 HTN (hypertension) I10 Hypokalemia E87.6
== END 2021-03-24 19:07 | disposition home or self-care (01) | DRG 418 ==
LOC: ED 15:30 → 3W 21:59 → SUATTDRO 21:59 → 3W 23:31